=== PATIENT | male | born 1955 | race Caucasian/White ===

== ENCOUNTER → 2017-03-14 | Outpatient (CLI) | payer BC ==
[~2017-03-14] MED LIST: ACET-749 PO; ASPEC325 PO; ASPI81TA28 PO; ATOR-24 PO; CIPR-255 PO; CLOP1TAB15 PO; LISI-725 PO; LSN25 PO; METO25TA56 PO; NTRGSL/4 SL; PHEN-775 PO
[2017-03-14 17:59] LABS: URINE APPEARANCE CLEAR (CLEAR); URINE BILIRUBIN NEG (NEG); URINE COLOR YELLOW; URINE EPITHELIAL CELL AUTO 0-5 /lpf (0-5); URINE NITRITE NEG (NEG); UROBILINOGEN NEG (NEG); ZZUR CULT IF INDIC CLEAN CATCH NO
[2017-03-14 18:01] LABS: MANUAL MICROSCOPIC REQUIRED? NO; REVIEW REQ? NO
[2017-03-14 18:07] LABS: BASO % 0.8 %; BASO ABS # 0.08 K/uL (0-0.2); COMPLETE YES; EOS % 1.4 %; IG% 0.2 %; LYMPH % 28.6 %; MEAN CELL VOLUME 97.8 fL (80-100); MEAN CORPUSCULAR HEMOGLOBIN 32.9 pg (25-34); MEAN CORPUSCULAR HGB CONC 33.6 g/dl (32-36); MEAN PLATELET VOLUME 9.6 fL (7.4-10.4); MONO % 10.4 %; NEUT % 58.6 %; PLATELET COUNT 342 K/uL (130-400); WHITE BLOOD COUNT 9.44 K/uL (4.8-10.8)
[2017-03-14 18:13] LABS: ALT/SGPT 26 U/L (12-78); AST/SGOT 14 U/L (15-37); BLOOD UREA NITROGEN 14 mg/dl (7-18); BUN/CREATININE RATIO 14.2 (10-20); CALCIUM 9.5 mg/dl (8.5-10.1); CARBON DIOXIDE 25 mmol/L (21-32); CHLORIDE 109 mmol/L (98-107); CREATININE 0.99 mg/dl (0.60-1.40); GLUCOSE 85 mg/dl (70-99); SODIUM 140 mmol/L (136-145)
[2017-03-14 18:20] LABS: ALB/GLOB RATIO 0.9 (0.9-2); ALKALINE PHOSPHATASE 106 U/L (45-117); CHOLESTEROL 197 mg/dl (0-200); CHOLESTEROL/HDL RATIO 3.6; HDL CHOLESTEROL 55 mg/dl; LDL CHOLESTEROL CALCULATED 101 mg/dl; TRIGLYCERIDES 207 mg/dl (0-150); VERY LOW DENSITY LIPOPROT CALC 41 mg/dl
== END | disposition home or self-care (01) ==
LOC: C.LABBFT 12:27
PROVIDERS: ATTEND Physician Assistant Medical
DX: R31.0 Gross hematuria (principal); E78.5 Hyperlipidemia, unspecified; Z12.5 Encounter for screening for malignant neoplasm of prostate

== ENCOUNTER → 2017-03-22 | Outpatient (CLI) | payer BC ==
--- NOTE | 2017-03-22 09:06 | DIAGNOSTIC IMAGING REPORT ---
ABD/PELVIS COMBO HISTORY: 61 years-old Male R31.0 Gross hematuria COMPARISON: None available TECHNIQUE: Multiple axial CT images of the abdomen and pelvis were obtained both with and without the use of 116 mL Optiray 320. A dose lowering technique was used consistent with the principals of AMPARO. FINDINGS: The imaged lung bases are generally clear with only minimal subsegmental atelectasis. There is minimal pleural parenchymal scarring of the inferior segment lingula. No pneumoperitoneum identified. Coronary arterial calcifications are partially imaged. The liver, gallbladder, spleen, and adrenal glands are within normal limits. Minimal parenchymal calcifications are seen involving the uncinate process of the pancreas which may reflect sequela of chronic pancreatitis. There is no nephrolithiasis. 1.2 x 1.0 cm low attenuating lesion of the posterior interpolar left kidney suggests renal cyst. The bilateral ureters appear normal. There is nodular wall thickening of the urinary bladder lumen which is only partially distended. There is a focal irregular area of soft tissue attenuating mural based polypoid nodularity along the left posterior lateral aspect of the urinary bladder lumen, 1.9 x 0.9 x 1.2 cm in the region of the left ureterovesicular junction suspicious for mass without obstruction of the adjacent left ureter. There are coarse parenchymal calcifications of the prostate. There is moderate atherosclerotic plaquing of the abdominal aorta. No bulky adenopathy is seen. There is no bowel obstruction. The appendix is tortuous and appears noninflamed. Soft tissues are unremarkable. Multilevel severe facet arthrosis is present. There is mild convex right curvature of the lumbar spine with multilevel discogenic degenerative changes. There is 5 mm anterolisthesis L5 on S1 with remote left-sided pars defect. IMPRESSION: 1. 1.9 x 0.9 x 1.2 cm area of soft tissue attenuating polypoid nodularity of the left posterior lateral urinary bladder wall adjacent to the left ureterovesicular junction is very suspicious for urothelial neoplasm. Correlation with cystoscopy is recommended. 2. No renal calculi or hydronephrosis. 3. Incidental note is made of a remote left-sided pars defect at L5 with 5 mm anterolisthesis L5 on S1. The above report was generated using voice recognition software. It may contain grammatical, syntax or spelling errors. Electronically signed by: Miles Baez M.D. 03/22/2017 9:05 AM Dictated Date/Time: 03/22/2017 8:53 AM
== END | disposition home or self-care (01) ==
LOC: C.CTS 08:28
PROVIDERS: ATTEND Physician Assistant Medical
DX: R31.0 Gross hematuria (principal); N28.9 Disorder of kidney and ureter, unspecified; M53.87 Other specified dorsopathies, lumbosacral region

== ENCOUNTER → 2017-03-24 | Outpatient (CLI) | payer BC ==
--- NOTE | 2017-03-24 08:43 | DIAGNOSTIC IMAGING REPORT ---
CHEST 2 VIEWS ROUTINE CLINICAL HISTORY: Gross hematuria. COMPARISON STUDY: Chest radiograph May 18, 2011. FINDINGS: Lung volumes are normal. Lungs are clear. No pneumothorax or pleural effusion is present. Cardiac size is normal. Mediastinal contours are normal. There is no evidence of pulmonary edema. IMPRESSION: No acute cardiopulmonary findings. Electronically signed by: Alphonse Ferreira M.D. 03/24/2017 8:42 AM Dictated Date/Time: 03/24/2017 8:38 AM
== END | disposition home or self-care (01) ==
LOC: C.CPL 08:20
PROVIDERS: ATTEND Urology
DX: R31.0 Gross hematuria (principal)

== ENCOUNTER → 2017-03-28 | Day surgery (SDC) | payer BC ==
[2017-03-24 13:56] VITALS: BMI 28.0
[~2017-03-28] VITALS: Ht 175.3 cm; Wt 86.4 kg
[~2017-03-28] MED LIST changes: -ASPEC325 PO; -ATOR-24 PO; +ATROPINE SULFATE 0.1 MG/ML 5ML SYR IV PRN; +CIPROFLOXACIN / D5W 400 MG IV SCH; -CLOP1TAB15 PO; +EpHEDrine SULFATE INJ 50 MG/ML AMP IV PRN; +FENTANYL CITRATE INJ 50 MCG/1 ML 2 ML VIAL IV PRN; +FENTANYL CITRATE INJ 50 MCG/1 ML 2 ML VIAL ONE; +LACTATED RINGER'S 1000ML 1,000 ML IV SCH; +LIDOCAINE HCL 2% 2 ML VIAL (20MG/ML) ONE; -LSN25 PO; +MIDAZOLAM HCL 1 MG/ML 2ML VIAL ONE; +ONDANSETRON INJ 2 MG/ML 2 ML VIAL IV PRN; +OXYCODONE/ACETAMINOPHEN 5-325 TAB PO PRN; +PROMETHAZINE HCL INJ 6.25 MG in SODIUM CHLORIDE 0.9% 50ML 50 ML IV PRN; +PROPOFOL IV EMULSION 10 MG/ML 20 ML VIAL IV ONE; +SODIUM CHLORIDE 0.9% 1000ML 1,000 ML IV SCH; +TAMSULOSIN HCL 0.4 MG CAP PO ONE
[2017-03-28 09:53] VITALS: BP 138/81; PULSE 61; TEMP 36.5; O2SAT 96; Ht 175.3 cm; Wt 86.4 kg
--- NOTE | 2017-03-28 10:17 | History & Physical Bridge Note ---
H&P Re-Evaluation Bridge Note: I have examined the patient, reviewed the History & Physical and in the interval since the performance of the History & Physical I have noted the following changes of clinical significance: No changes noted
--- NOTE | 2017-03-28 11:02 | [facility] Operative Report ---
Operative Report Operative Date Mar 28, 2017. Pre-Operative Diagnosis Bladder tumor Post-Operative Diagnosis Bladder tumor Procedure(s) Performed Cystoscopy, Transurethral Resection Bladder Tumor (medium) Surgeon Lisbeth Wet Sander Surgeon(s) none Estimated Blood Loss 0cc Findings Bladder tumor arising from the left lateral wall immediately adjacent to the left ureteral orifice - estimated 3 cm Specimens A:Bladder tumor Drains none Anesthesia Gen. Complication(s) None Disposition Recovery Room / PACU (stable) Indications Hematuria; bladder tumor Description of Procedure Rashard Newton was identified in the preoperative holding area appropriate informed consents were reviewed and completed and the patient was transported to the operating suite. Upon arrival he received appropriate preoperative antibiotics in the form of ciprofloxacin, he was sterilely prepped and draped in standard fashion, and the case initiated. I begin by passing a 24 Scottish resectoscope with 30 lens and visual obturator. Inspection revealed a healthy- appearing urethra without evidence of stricture disease. Prostate was moderately enlarged with some lateral lobe hypertrophy. Full inspection of the bladder was carried out with both 30 and 70 lens. Ureteral orifices were medially identified in orthotopic position. Immediately adjacent to the left ureteral orifice there was a protuberant bladder tumor. I estimate the size of this tumor nearly 3 cm. It did not have simple papillary architecture. He appeared to be more of a solid mass causing bulbous projection into the bladder. On the posterior aspect of this there was some typical papillary architecture. Full inspection of the bladder failed to reveal any other satellite lesions. Following my inspection, I exchanged the visual obturator for resecting element. I was able to resect the solitary tumor with a series of swipes. Extreme caution was used to avoid encroachment onto the UO itself. After obtaining meticulous hemostasis from the resection site and irrigating all chips out of the bladder, I reevaluated the bladder. There is still clear efflux from the left ureteral orifice and at this time I did not see any reason to stent it. I again confirmed that all tumor have been adequately treated, all chips were irrigated, and the bladder was hemostatic before withdrawing the scope and emptying the bladder. Patient was subsequently extubated and taken to the PACU in stable condition. I attest to the content of the Intraoperative Record and any orders documented therein. Any exceptions are noted below.
--- NOTE | 2017-03-28 11:05 | Discharge Instructions ---
Discharge Instructions Date of Service Mar 28, 2017. Admission Reason for Admission: Hematuria Discharge Discharge Diagnosis / Problem: bladder tumor Discharge Goals Goal(s): Decrease discomfort, Improve function, Increase independence, Improve disease control, Prevent Disease Progression Activity Recommendations Activity Limitations: per Instructions/Follow-up section Lifting Limitations: gradually increase as tolerated Exercise/Sports Limitations: gradually increase as tolerated May Resume Sexual Activity: when tolerated Shower/Bathe: no limitations Driving or Machine Use: resume 1 day after discharge Please drink lots of water . Instructions / Follow-Up Instructions / Follow-Up Please keep your previously scheduled follow-up appointment Discharge Diet Recommended Diet: Regular Diet Procedures Procedures Performed: Cystoscopy, Transurethral Resection Bladder Tumor (medium) Pending Studies Studies pending at discharge: no Laboratory Results Lipid Panel Test 03/14/17 12:29 Range/Units Triglycerides Level 207 H 0-150 mg/dl Cholesterol Level 197 0-200 mg/dl HDL Cholesterol 55 mg/dl Cholesterol/HDL Ratio 3.6 LDL Cholesterol, Calculated 101 mg/dl Medical Emergencies . Who to Call and When: Medical Emergencies: If at any time you feel your situation is an emergency, please call 911 immediately. . Non-Emergent Contact Non-Emergency issues call your: Urologist Call Non-Emergent contact if: you have a fever, temperature is above 101.5, your pain is not controlled, your pain is worsening . . "Provider Documentation" section prepared by Neo Robertson. . VTE Core Measure Inpt VTE Proph given/why not?: Treatment not indicated [place] Drug Monitoring Program Search Results: patient reviewed within database, no issues identified
--- NOTE | 2017-03-28 11:38 | Anesthesiology Progress Note ---
Anesthesia Post Op Note Date & Time Mar 28, 2017 at 11:38 Vital Signs Pain Intensity: 3 Vital Signs Past 12 Hours Date Time Temp Pulse Resp B/P (MAP) Pulse Ox O2 Delivery O2 Flow Rate FiO2 03/28/17 11:30 56 16 92/55 96 Room Air 03/28/17 11:20 54 16 127/74 93 Room Air 03/28/17 11:10 62 16 149/85 98 Oxymask 10 03/28/17 11:02 36.6 64 16 136/86 97 Oxymask 10 03/28/17 09:53 36.5 61 18 138/81 (100) 96 Room Air Notes Mental Status: alert / awake / arousable, participated in evaluation Pt Amnestic to Procedure: Yes Nausea / Vomiting: adequately controlled Pain: adequately controlled Airway Patency, RR, SpO2: stable & adequate BP & HR: stable & adequate Hydration State: stable & adequate Anesthetic Complications: no major complications apparent
[2017-03-28 11:45] VITALS: BP 118/61; PULSE 54; TEMP 36.4; O2SAT 93
[2017-03-28 12:06] VITALS: BP 118/61; PULSE 54; TEMP 36.4; O2SAT 93
[2017-03-28 12:15] VITALS: BP 117/67; PULSE 52; O2SAT 95
[2017-03-28 12:40] VITALS: BP 141/75; PULSE 54; TEMP 35.9; O2SAT 95
== END | disposition home or self-care (01) ==
LOC: C.ACU 09:27
PROVIDERS: ATTEND Urology
DX: C67.9 Malignant neoplasm of bladder, unspecified (principal); E78.5 Hyperlipidemia, unspecified; I10 Essential (primary) hypertension; F17.200 Nicotine dependence, unspecified, uncomplicated; I25.2 Old myocardial infarction; Z79.82 Long term (current) use of aspirin; Z80.52 Family history of malignant neoplasm of bladder

== ENCOUNTER → 2017-12-05 | Outpatient (CLI) | payer OTHER ==
[~2017-12-05] MED LIST changes: -ACET-749 PO; -ATROPINE SULFATE 0.1 MG/ML 5ML SYR IV PRN; -CIPROFLOXACIN / D5W 400 MG IV SCH; -EpHEDrine SULFATE INJ 50 MG/ML AMP IV PRN; -FENTANYL CITRATE INJ 50 MCG/1 ML 2 ML VIAL IV PRN; -FENTANYL CITRATE INJ 50 MCG/1 ML 2 ML VIAL ONE; -LACTATED RINGER'S 1000ML 1,000 ML IV SCH; -LIDOCAINE HCL 2% 2 ML VIAL (20MG/ML) ONE; -MIDAZOLAM HCL 1 MG/ML 2ML VIAL ONE; -ONDANSETRON INJ 2 MG/ML 2 ML VIAL IV PRN; -OXYCODONE/ACETAMINOPHEN 5-325 TAB PO PRN; -PHEN-775 PO; -PROMETHAZINE HCL INJ 6.25 MG in SODIUM CHLORIDE 0.9% 50ML 50 ML IV PRN; -PROPOFOL IV EMULSION 10 MG/ML 20 ML VIAL IV ONE; -SODIUM CHLORIDE 0.9% 1000ML 1,000 ML IV SCH; -TAMSULOSIN HCL 0.4 MG CAP PO ONE
[2017-12-05 12:35] LABS: BASO % 0.6 %; BASO ABS # 0.05 K/uL (0-0.2); EOS % 0.9 %; EOS ABS # 0.07 K/uL (0-0.5); HEMATOCRIT 42.1 % (42-52); IG# 0.01 K/uL (0.00-0.02); LYMPH % 29.6 %; LYMPH ABS # 2.28 K/uL (1.2-3.4); MEAN CELL VOLUME 97.2 fL (80-100); MEAN CORPUSCULAR HEMOGLOBIN 32.3 pg (25-34); MEAN CORPUSCULAR HGB CONC 33.3 g/dl (32-36); MEAN PLATELET VOLUME 9.9 fL (7.4-10.4); MONO % 9.7 %; MONO ABS # 0.75 K/uL (0.11-0.59); NEUT % 59.1 %; NEUT ABS # 4.55 K/uL (1.4-6.5); PLATELET COUNT 294 K/uL (130-400); RED CELL DISTRIBUTION WIDTH CV 13.9 % (11.5-14.5); RED CELL DISTRIBUTION WIDTH SD 49.8 fL (36.4-46.3); WHITE BLOOD COUNT 7.71 K/uL (4.8-10.8)
[2017-12-05 13:09] LABS: ALBUMIN 3.3 gm/dl (3.4-5.0); ALT/SGPT 25 U/L (12-78); AST/SGOT 15 U/L (15-37); BLOOD UREA NITROGEN 14 mg/dl (7-18); CALCIUM 9.1 mg/dl (8.5-10.1); CARBON DIOXIDE 27 mmol/L (21-32); CHOLESTEROL 161 mg/dl (0-200); CREATININE 0.99 mg/dl (0.60-1.40); GLUCOSE 87 mg/dl (70-99); POTASSIUM 4.1 mmol/L (3.5-5.1); SODIUM 140 mmol/L (136-145)
[2017-12-05 13:14] LABS: ALKALINE PHOSPHATASE 98 U/L (45-117); LDL CHOLESTEROL CALCULATED 78 mg/dl
== END | disposition home or self-care (01) ==
LOC: C.LABBFT 08:03
PROVIDERS: ATTEND Physician Assistant Medical
DX: E78.5 Hyperlipidemia, unspecified (principal)

== ENCOUNTER 2023-09-19 15:58 | Inpatient (IN) ==
[2023-09-19] MEDS ORDERED: SODIUM CHLORIDE 0.9% 1,000 ML IV STA (16:33)
--- NOTE | 2023-09-19 16:33 | ED Triage Note ---
Date of Service September 19, 2023 Provider in Triage Author: Mildred Patel History of Present Illness This patient was briefly evaluated while in triage. An abbreviated physical exam was performed. This patient is a 68-year-old Male who presents to the ED for evaluation of hypotension and lightheadedness with h/o UC. He has been having increased diarrhea and rectal bleeding. Also having right sided abdominal pain. Denies nausea, vomiting, or fevers. He was referred to the ER by Dr. Hensley "for IV fluids." He was on Entyvio, but was having complications and needed to stop it. No longer on meds for UC. Physical Exam GENERAL: Non-toxic and in no acute distress. HEENT: Pupils equal. No obvious scleral icterus. HEART: Regular rate and rhythm. LUNGS: Clear to auscultation. No accessory muscle use. ABDOMEN: Soft, mildly tender in the RLQ. NEURO: Alert and oriented. No obvious neurological deficits on quick neuro exam. MUSCULOSKELETAL: No gross musculoskeletal defects. Initial orders for labs and / or imaging were placed and patient was placed in the waiting area until a bed is available. Please see further documentation for the full ED course. 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
[2023-09-19 17:09] LABS: Appearance Urine Clear (Clear); Bacteria Urine Automated Negative (Negative); Bilirubin Urine Negative (Negative); Blood Urine Negative (Negative); Color Urine Dark Yellow; Glucose Urine UA Negative (Negative); Ketones Urine Trace (Negative); Leukocyte Esterase Urine Negative (Negative); Nitrite Urine Negative (Negative); Protein Urine Trace (Negative); RBC Urine Automated 0-4 /hpf (0-4); Specific Gravity Urine 1.014 (1.000-1.030); Urobilinogen Urine Negative (Negative)
--- NOTE | 2023-09-19 17:12 | XRay Report ---
XR chest 1V portable HISTORY: 68 years-old Male Hypotension COMPARISON: 09/14/2023 TECHNIQUE: AP view of the chest FINDINGS: Cardiomediastinal and hilar silhouettes are within normal limits. Calcified plaque of the carotid art eries. Atherosclerosis of the aorta. Spondylotic spurring of the spine. No pneumothorax, pleural effu marc or airspace consolidation. IMPRESSION: No acute process. ACT 112: Negative or not required by law. The above report was generated using voice recognition software. It may contain grammatical, syntax o r spelling errors. Electronically signed by: Dom Baez M.D. 09/19/2023 5:10 PM
--- NOTE | 2023-09-19 17:22 | Emergency Department Note ---
Impression & Plan [facility] (acute kidney injury), Hypotension, Ulcerative proctosigmoiditis, Dehydration ED Provider Note NAME: ELIZABETH PHELAN AGE: 68 SEX: M ARRIVES VIA: Walk-In INFORMANT: Patient ED PROVIDER(S): Yoseph Alva MD CHIEF COMPLAINT: Dizziness, diarrhea/colitis, referred PLAN: Disposition: Admit MEDICAL DECISION MAKING: The patient is a pleasant 68-year-old gentleman with a past medical history of CKD, history of ulcerative colitis, everyday vaping, CAD who presents emergency department via walk in for ongoing lightheadedness over the past week or so in the setting of having persistent loose/watery stools since the mid of July consistent with his history of colitis per his report. Patient was seen by his primary care doctor today and referred to emergency department due to his dizziness and low blood pressure. He denies any chest pain, shortness of breath, cough or congestion. He denies any nausea or vomiting. He reports he is able to eat and drink but admits he is probably getting dehydrated from his diarrhea. Of note, the patient was seen in this emergency department approximately a week ago for syncopal episode in the setting of dehydration and acute kidney injury were he had suffered a nondisplaced left anterior 5th rib fracture. Admission was recommended at that time however the patient declined and preferred to follow-up with his primary care doctor which he did so today. Of note, the patient did arrive to emergency department during time of high volume, acuity and prolonged emergency department waiting times. Critical pathways initiated from triage. On evaluation the patient is fatigued appearing but no distress, afebrile blood pressure initially 80s/60s in triage improving with IV fluids to systolic in the 100s. Vital signs are otherwise stable. He appears clinically dry. Abdomen is benign. EKG without overt acute ischemia. CXR negative for acute cardiopulmonary process per my personal preliminary review/interpretation. WBC and platelets within normal limits. H/H similar to prior. Platelets within normal limits. ESR is 48, nonspecific. CRP is undetectable. Creatinine is 2.04, unimproved since his visit a week ago and overall worsening trend since July with range of 1.5-2.0 whereas his previous range had been 1-1.5. UA without convincing evidence of infection. CT of the abd/pelvis was performed and demonstrates evidence of colitis/proctocolitis consistent with patient's UC history. Findings reviewed with the patient and given his ongoing renal insufficiency trending worse from baseline with hypotension on arrival in addition to dizziness in the setting of having syncopal episode last week the patient does agree with plan for admission for further management. Of note, during the patient's emergency department observation/evaluation he had grown frustrated and expressed to nursing his distance [address] was performed without talking him asking for permission. I then met with the patient again and reviewed with him how we had discussed this in detail and specifically the need to obtain a CT of the abdomen pelvis at which point he then recalled that this had occurred and had apologized and talked his forgetfulness up to his dehydration. For completeness however CT of the head was ordered to exclude central etiology to the patient's forgetfulness which was again reviewed with the patient in person and he did agree. This was negative for acute abnormalities. Otherwise, the patient's C. difficile PCR and stool PCR was negative and so treatment initiated with 60 mg dose of Solu-Medrol for UC flare per PCP documentation from his visit today regarding his management for previous flares. Nicotine patch ordered. Case was discussed with Dr. Curtis, [facility] [place], who will evaluate the patient for admission. Triage Nursing notes reviewed and agree them. Prior/external medical records reviewed Vital Signs: reviewed Differential diagnosis: Gastroenteritis, food borne illness, infections, appendicitis, diverticulitis, inflammatory bowel disease, obstruction, GI bleed, biliary pathology, volvulus, as well as other pathologies. ER treatment provided: See below. Diagnostics interpreted by me: ECG: Normal sinus rhythm, 75 bpm, no ectopy, no overt ST elevation or depression, QTc 410, QRS 76 Cardiac Monitoring: An order for continuous cardiac monitoring was placed and demonstrated Normal sinus rhythm, 75 bpm, no ectopy, Laboratory studies: See below Imaging studies: See below Consultation(s): Case was discussed with NAZARIO Lopez hospitalist, who will evaluate the patient for admission. HPI: The patient is a pleasant 68-year-old gentleman with a past medical history of CKD, history of ulcerative colitis, everyday vaping, CAD who presents emergency department via walk in for ongoing lightheadedness over the past week or so in the setting of having persistent loose/watery stools since the mid of July consistent with his history of colitis per his report. Patient was seen by his primary care doctor today and referred to emergency department due to his dizziness and low blood pressure. He denies any chest pain, shortness of breath, cough or congestion. He denies any nausea or vomiting. He reports he is able to eat and drink but admits he is probably getting dehydrated from his diarrhea. Of note, the patient was seen in this emergency department approximately a week ago for syncopal episode in the setting of dehydration and acute kidney injury were he had suffered a nondisplaced left anterior 5th rib fracture. Admission was recommended at that time however the patient declined and preferred to follow-up with his primary care doctor which he did so today. ROS: See above HPI for pertinent positives & negatives. A total of 10 systems reviewed and were otherwise negative. VITALS:See Below PHYSICAL EXAMINATION: GENERAL: Awake, alert, fatigued-appearing, in no distress HENT: Normocephalic, atraumatic. Oropharynx with dry mucous membranes and otherwise unremarkable. EYES: Normal conjunctiva. Sclera non-icteric. EOMI. No nystamgus. PEARRL. NECK: Supple. No nuchal rigidity. FROM. No JVD. RESPIRATORY: Clear to auscultation. CARDIAC: Regular rate, normal rhythm. Extremities warm and well perfused. Pulses equal. ABDOMEN: Soft, non-distended. No tenderness to palpation. No rebound or guarding. No masses. RECTAL: Deferred. MUSCULOSKELETAL: Chest examination reveals no tenderness. The back is symmetrical on inspection without obvious abnormality. There is no CVA tenderness to palpation. No joint edema. LOWER EXTREMITIES: Calves are equal size bilaterally and non-tender. No edema. No discoloration. NEURO: Normal sensorium. No sensory or motor deficits noted. SKIN: No rash or jaundice noted. 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 BPH (benign prostatic hyperplasia) Osteoarthritis Hyperlipidemia Personal history of malignant neoplasm of bladder Hypertension Past myocardial infarction 2010 with stent x 2 CAD (coronary artery disease) stent x2 (2010) Surgical History History of colonoscopy History of laryngoscopy WITH BIOPSY History of cystoscopy BLADDER TUMOR REMOVED x2 History of biopsy of bladder History of tooth extraction History of tonsillectomy History of cardiac cath stent x2 (2010) -- [facility] follow with kari flores Stented coronary artery Family History Father Bladder cancer Denies family history of Ovarian cancer Prostate cancer Myocardial infarction Breast cancer Colorectal cancer Social History Smoking Status: Never smoker Tobacco Type: E-cigarettes / Vaping Age Started Using Tobacco: 14; Age Quit Using Tobacco: 65; Cigarettes Per Day: daily 1 pod 2 days; Second Hand Exposure: No; Do You Dip or Chew Tobacco: No; Hx Alcohol Use: Yes (stopped drinking Aug 01, 2024) Alcohol type: beer Alcohol Intake Frequency: 4 or More x per/Week Hx Substance Use: No Preferred Language: Syrian Communication Ability: Effective Visual Impairment: No Limitations Hearing Ability: Normal Fabricator Special Items Required: No Beliefs That Will Affect Care: None marital status: Single Current Living Situation: Alone Current Living Situation Comment: sister and brother are available to help current occupational status: retired current occupation: retired from career with [employer] with [employer] Feels Safe at Home: Yes Childhood Exposure to Second-Hand Smoke: Yes Diet: regular caffeine: Yes (one mug of coffee daily) Dental Care, Regularly: Yes Physical Activity Frequency: Does not Exercise Seatbelt Use: always Sunscreen Use: No (doesn't go outside when it is mary ) Assistive Devices: Glasses Allergies Allergies Allergy/AdvReac Type Severity Reaction Status Date / Time atorvastatin AdvReac Intermediate LEG Verified 09/19/23 18:30 FATIGUE, BACK PAIN Home Meds Home Medications Medication Instructions Recorded Confirmed nitroglycerin 0.4 mg sublingual 0.4 mg sublingual Q5M PRN chest 06/25/19 09/19/23 tablet pain #25 tabs aspirin 325 mg tablet 325 mg PO HS 02/04/22 09/19/23 allopurinol 100 mg tablet 100 mg PO DAILY 05/06/22 09/19/23 multivitamin (Daily Multi-Vitamin 1 tab PO DAILY 05/06/22 09/19/23 tablet) Previous Rx's Medication Instructions Recorded lisinopril 40 mg tablet 40 mg PO HS #90 tabs 11/09/22 rosuvastatin 40 mg tablet 40 mg PO HS #90 tabs 11/09/22 metoprolol succinate 50 mg 50 mg PO DAILY #90 tabs 03/10/23 tablet,extended release 24 hr tamsulosin 0.4 mg capsule 0.4 mg PO DAILY #90 caps 04/17/23 ezetimibe 10 mg tablet (Zetia) 10 mg PO DAILY #90 tabs 07/07/23 prednisone 20 mg tablet 40 mg (2 x 20 mg) PO DAILY 7 days 09/19/23 #14 tabs Results & Data (ED) Vital Signs Vital Signs - 24 hr 09/19/23 16:31 09/19/23 17:21 09/19/23 17:30 Temperature 36.9 C Temperature Source Temporal Artery Scan Pulse Rate 89 75 73 Pulse Rate [Apical] Pulse Rhythm Regular Pulse Rhythm [Apical] Pulse Strength [Apical] Respiratory Rate 19 20 Respiratory Effort / Characteristics Non-Labored Spontaneous Respiratory Depth Normal Respiratory Pattern Blood Pressure 87/63 L Blood Pressure [Right Arm] Blood Pressure Mean 71 Blood Pressure Mean [Right Arm] Blood Pressure Position [Right Arm] Pulse Oximetry 95 95 Oxygen Delivery Method Room Air Room Air Sepsis Recent Fever Within 48 Hours No Sepsis New/Unexplained Change in Mental Status N/A Sepsis Action Taken by Nursing No Action Required 09/19/23 17:59 09/19/23 19:12 09/19/23 20:02 Temperature 36.9 C 37.3 C Temperature Source Oral Oral Pulse Rate Pulse Rate [Apical] 78 81 Pulse Rhythm Pulse Rhythm [Apical] Regular Pulse Strength [Apical] Normal Respiratory Rate 19 18 20 Respiratory Effort / Characteristics Non-Labored Spontaneous Non-Labored Spontaneous Respiratory Depth Normal Normal Normal Respiratory Pattern Regular Blood Pressure Blood Pressure [Right Arm] 100/60 128/70 138/71 Blood Pressure Mean Blood Pressure Mean [Right Arm] 73 89 93 Blood Pressure Position [Right Arm] Semi-fowlers Semi-fowlers Pulse Oximetry 95 99 Oxygen Delivery Method Room Air Room Air Sepsis Recent Fever Within 48 Hours Sepsis New/Unexplained Change in Mental Status Sepsis Action Taken by Nursing Laboratory Data Attestation: I reviewed the patient's lab results. 09/19/23 17:15 09/19/23 17:15 Lab Results 09/19/23 09/19/23 09/19/23 Range/Units 17:15 17:27 17:44 WBC 5.63 (4.8-10.8) K/ul RBC 3.61 L (4.70-6.10) M/uL Hgb 11.9 L (14.0-18.0) g/dl Hct 36.3 L (42.0-52.0) % MCV 100.6 H (80.0-100.0) fL MCH 33.0 (25.0-34.0) pg MCHC 32.8 (32.0-36.0) g/dL RDW Std Deviation 49.5 H (36.4-46.3) fL RDW Coeff of Sandra 13.4 (11.5-14.5) % Plt Count 257 (130-400) K/uL MPV 8.8 L (9.4-12.4) fL Immature Gran % (Auto) 0.4 % Neut % (Auto) 61.4 % Lymph % (Auto) 19.9 % [place] % (Auto) 15.5 % Eos % (Auto) 1.6 % Baso % (Auto) 1.2 % Neut # (Auto) 3.46 (1.40-6.50) K/uL Lymph # (Auto) 1.12 L (1.20-3.40) K/uL [place] # (Auto) 0.87 H (0.11-0.59) K/uL Eos # (Auto) 0.09 (0.00-0.50) K/uL Baso # (Auto) 0.07 (0.00-0.20) K/uL Immature Gran # (Auto) 0.02 (0.01-0.20) K/uL ESR 48 H (0-20) mm/hr PT 10.9 (9.0-12.0) Seconds INR 1.0 (0.9-1.1) APTT 28 (21-31) Seconds PTT Ratio 1.0 Sodium 138 (136-145) mmol/L Potassium 4.3 (3.5-5.1) mmol/L Chloride 104 (98-107) mmol/L Carbon Dioxide 23 (21-32) mmol/L Anion Gap 11 (3-11) BUN 22 (6-23) mg/dl Creatinine 2.04 H (0.6-1.4) mg/dl Est Cr Clr Drug Dosing 31.6 ml/min Est GFR ( Amer) 37.2 ml/min Est GFR (Non-Af Amer) 32.1 ml/min BUN/Creatinine Ratio 10.8 (10-20) Glucose 100 H (70-99(Fasting)) mg/dl Calcium 10.0 (8.6-10.3) mg/dl Total Bilirubin 0.5 (0.2-1.0) mg/dl AST 15 (13-39) U/L ALT 17 (7-52) U/L Alkaline Phosphatase 112 H (34-104) U/L Troponin I High Sens 4.0 (0-20) pg/ml C-Reactive Protein < 0.50 (0-0.5) mg/dl Total Protein 6.9 (6.0-8.3) gm/dl Albumin 4.0 (3.4-5.0) gm/dl Globulin 2.9 (2.5-4.0) gm/dl Albumin/Globulin Ratio 1.4 (0.9-2) Lipase 25 (11-82) U/L Urine Color Urine Appearance (Clear) Urine pH (4.5-7.5) Ur Specific [place] (1.000-1.030) Urine Protein (Negative) Urine Glucose (UA) (Negative) Urine Ketones (Negative) Urine Blood (Negative) Urine Nitrite (Negative) Urine Bilirubin (Negative) Urine Urobilinogen (Negative) Ur Leukocyte Esterase (Negative) Urine WBC (Auto) (0-5) /hpf Urine RBC (Auto) (0-4) /hpf U Hyaline Cast (Auto) (0-5) /lpf U Epithel Cells (Auto) (0-5) /lpf Urine Bacteria (Auto) (Negative) Stl C. cayetanensis PCR (NotDetected) Stool Rotavirus A PCR (NotDetected) Stl Adenov F 40/41 PCR (NotDetected) Stool Astrovirus (PCR) (NotDetected) Stool Campylobacter PCR (NotDetected) Stl C. diff Tox B Gene (Neg) Stool Cryptosporidium PCR (NotDetected) Stl E.coli Shiga Tox PCR (NotDetected) Stl Enterotoxigenic E PCR (NotDetected) Stool EPEC (PCR) (NotDetected) Stool EAEC (PCR) (NotDetected) Stl E. histolytica PCR (NotDetected) Stool Giardia Lamblia PCR (NotDetected) Stool Salmonella PCR (NotDetected) Stool Sapovirus (PCR) (NotDetected) Stl P. shigelloides PCR (NotDetected) Stl Shigella/EIEC PCR (NotDetected) St Y.enterocolitica PCR (NotDetected) Stool Vibrio (PCR) (NotDetected) Stl Vibrio cholerae PCR (NotDetected) Stl Norovirus GI/GII PCR (NotDetected) Adenovirus (PCR) Not Detected (NotDetected) B. pertussis DNA (PCR) Not Detected (NotDetected) B.parapertussis DNA PCR Not Detected (NotDetected) C. pneumoniae DNA (PCR) Not Detected (NotDetected) Coronavirus OC43 (PCR) Not Detected (NotDetected) Coronavirus HKU1 (PCR) Not Detected (NotDetected) Coronavirus 229E (PCR) Not Detected (NotDetected) SARS-CoV-2 (PCR) Not Detected (NotDetected) Coronavirus NL63 (PCR) Not Detected (NotDetected) Human Metapneumovir PCR Not Detected (NotDetected) Influenza Type A (PCR) Not Detected (NotDetected) Influenza Type B (PCR) Not Detected (NotDetected) M. pneumoniae (PCR) Not Detected (NotDetected) Parainfluenza 1 (PCR) Not Detected (NotDetected) Parainfluenza 2 (PCR) Not Detected (NotDetected) Parainfluenza 3 (PCR) Not Detected (NotDetected) Parainfluenza 4 (PCR) Not Detected (NotDetected) RSV (PCR) Not Detected (NotDetected) Entero/Rhino (PCR) Not Detected (NotDetected) Blood Type O Positive Antibody Screen NEGATIVE 09/19/23 09/19/23 Range/Units 19:07 Unknown WBC (4.8-10.8) K/ul RBC (4.70-6.10) M/uL Hgb (14.0-18.0) g/dl Hct (42.0-52.0) % MCV (80.0-100.0) fL MCH (25.0-34.0) pg MCHC (32.0-36.0) g/dL RDW Std Deviation (36.4-46.3) fL RDW Coeff of Sandra (11.5-14.5) % Plt Count (130-400) K/uL MPV (9.4-12.4) fL Immature Gran % (Auto) % Neut % (Auto) % Lymph % (Auto) % [place] % (Auto) % Eos % (Auto) % Baso % (Auto) % Neut # (Auto) (1.40-6.50) K/uL Lymph # (Auto) (1.20-3.40) K/uL [place] # (Auto) (0.11-0.59) K/uL Eos # (Auto) (0.00-0.50) K/uL Baso # (Auto) (0.00-0.20) K/uL Immature Gran # (Auto) (0.01-0.20) K/uL ESR (0-20) mm/hr PT (9.0-12.0) Seconds INR (0.9-1.1) APTT (21-31) Seconds PTT Ratio Sodium (136-145) mmol/L Potassium (3.5-5.1) mmol/L Chloride (98-107) mmol/L Carbon Dioxide (21-32) mmol/L Anion Gap (3-11) BUN (6-23) mg/dl Creatinine (0.6-1.4) mg/dl Est Cr Clr Drug Dosing ml/min Est GFR ( Amer) ml/min Est GFR (Non-Af Amer) ml/min BUN/Creatinine Ratio (10-20) Glucose (70-99(Fasting)) mg/dl Calcium (8.6-10.3) mg/dl Total Bilirubin (0.2-1.0) mg/dl AST (13-39) U/L ALT (7-52) U/L Alkaline Phosphatase (34-104) U/L Troponin I High Sens (0-20) pg/ml C-Reactive Protein (0-0.5) mg/dl Total Protein (6.0-8.3) gm/dl Albumin (3.4-5.0) gm/dl Globulin (2.5-4.0) gm/dl Albumin/Globulin Ratio (0.9-2) Lipase (11-82) U/L Urine Color Dark Yellow Urine Appearance Clear (Clear) Urine pH 5.0 (4.5-7.5) Ur Specific [place] 1.014 (1.000-1.030) Urine Protein Trace H (Negative) Urine Glucose (UA) Negative (Negative) Urine Ketones Trace H (Negative) Urine Blood Negative (Negative) Urine Nitrite Negative (Negative) Urine Bilirubin Negative (Negative) Urine Urobilinogen Negative (Negative) Ur Leukocyte Esterase Negative (Negative) Urine WBC (Auto) 1-5 (0-5) /hpf Urine RBC (Auto) 0-4 (0-4) /hpf U Hyaline Cast (Auto) 5-10 H (0-5) /lpf U Epithel Cells (Auto) 5-10 H (0-5) /lpf Urine Bacteria (Auto) Negative (Negative) Stl C. cayetanensis PCR Not Detected (NotDetected) Stool Rotavirus A PCR Not Detected (NotDetected) Stl Adenov F 40/41 PCR Not Detected (NotDetected) Stool Astrovirus (PCR) Not Detected (NotDetected) Stool Campylobacter PCR Not Detected (NotDetected) Stl C. diff Tox B Gene Negative Cdiff Gene (Neg) Stool Cryptosporidium PCR Not Detected (NotDetected) Stl E.coli Shiga Tox PCR Not Detected (NotDetected) Stl Enterotoxigenic E PCR Not Detected (NotDetected) Stool EPEC (PCR) Not Detected (NotDetected) Stool EAEC (PCR) Not Detected (NotDetected) Stl E. histolytica PCR Not Detected (NotDetected) Stool Giardia Lamblia PCR Not Detected (NotDetected) Stool Salmonella PCR Not Detected (NotDetected) Stool Sapovirus (PCR) Not Detected (NotDetected) Stl P. shigelloides PCR Not Detected (NotDetected) Stl Shigella/EIEC PCR Not Detected (NotDetected) St Y.enterocolitica PCR Not Detected (NotDetected) Stool Vibrio (PCR) Not Detected (NotDetected) Stl Vibrio cholerae PCR Not Detected (NotDetected) Stl Norovirus GI/GII PCR Not Detected (NotDetected) Adenovirus (PCR) (NotDetected) B. pertussis DNA (PCR) (NotDetected) B.parapertussis DNA PCR (NotDetected) C. pneumoniae DNA (PCR) (NotDetected) Coronavirus OC43 (PCR) (NotDetected) Coronavirus HKU1 (PCR) (NotDetected) Coronavirus 229E (PCR) (NotDetected) SARS-CoV-2 (PCR) (NotDetected) Coronavirus NL63 (PCR) (NotDetected) Human Metapneumovir PCR (NotDetected) Influenza Type A (PCR) (NotDetected) Influenza Type B (PCR) (NotDetected) M. pneumoniae (PCR) (NotDetected) Parainfluenza 1 (PCR) (NotDetected) Parainfluenza 2 (PCR) (NotDetected) Parainfluenza 3 (PCR) (NotDetected) Parainfluenza 4 (PCR) (NotDetected) RSV (PCR) (NotDetected) Entero/Rhino (PCR) (NotDetected) Blood Type Antibody Screen Administered Medications Sodium Chloride (Nss) 1,000 mls @ 250 mls/hr IV .Q4H DICKSON Stop: 10/19/23 20:59 Last Admin: 09/19/23 21:35 Dose: 250 mls/hr Documented By: ML Discontinued Medications Sodium Chloride (Nss) 1,000 mls @ 999 mls/hr IV .Q1H1M STA Stop: 09/19/23 17:33 Last Infusion: 09/19/23 19:13 Dose: Infused Documented By: [facility] Admin: 09/19/23 17:32 Dose: 999 mls/hr Documented By: ANGELICA Ioversol (Optiray 320 500ml) 88 ml IV ONCE ONE Stop: 09/19/23 19:56 Last Admin: 09/19/23 19:55 Dose: 88 ml Documented By: ONELIA Methylprednisolone (Methylprednisolone 125 Mg/2 Ml Vial) 60 mg IV NOW STA Stop: 09/19/23 21:24 Last Admin: 09/19/23 21:46 Dose: 60 mg Documented By: JAJA Imaging Data Radiologist's Impression: Chest X-Ray 09/19/23 16:33 XR chest 1V portable HISTORY: 68 years-old Male Hypotension COMPARISON: 09/14/2023 TECHNIQUE: AP view of the chest FINDINGS: Cardiomediastinal and hilar silhouettes are within normal limits. Calcified plaque of the carotid arteries. Atherosclerosis of the aorta. Spondylotic spurring of the spine. No pneumothorax, pleural effusion or airspace consolidation. IMPRESSION: No acute process. ACT 112: Negative or not required by law. The above report was generated using voice recognition software. It may contain grammatical, syntax or spelling errors. Electronically signed by: Dom Baez M.D. 09/19/2023 5:10 PM Abdomen/Pelvis CT 09/19/23 16:34 Exam(s): CT ABDOMEN + PELVIS With Contrast IV Amt: 88 ml optiray 320 EXAM: CT Abdomen and Pelvis With Intravenous Contrast CLINICAL HISTORY: Reason for exam: RLQ pain, rectal bleeding, hypotension. TECHNIQUE: Axial computed tomography images of the abdomen and pelvis with intravenous contrast. CTDI is 21.91 mGy and DLP is 982.73 mGy-cm. Automated exposure control was utilized for the study. A dose lowering technique was utilized adhering to the principles of ALARA. CONTRAST: Patient received 88 ml optiray 320 of IV contrast COMPARISON: CT abdomen/pelvis on 02/27/2020 FINDINGS: Lung bases: Unremarkable. No mass. No consolidation. ABDOMEN: Liver: Unremarkable. No mass. Gallbladder and bile ducts: Unremarkable. No calcified stones. No ductal dilation. Pancreas: Unremarkable. No mass. No ductal dilation. Spleen: Unremarkable. No splenomegaly. Adrenals: Unremarkable. No mass. Kidneys and ureters: Nonspecific bilateral perinephric fat stranding. No hydronephrosis or obstructing stone. Probable small left renal cysts, but further evaluation could be performed with ultrasound if clinically indicated. Stomach and bowel: Prominence of the partida of the sigmoid colon and rectum may be secondary to underdistention. Colitis or proctitis is not excluded. Fluid and gas-filled small bowel loops could represent enteritis in the appropriate clinical setting. Evaluation of the stomach is limited by underdistention. PELVIS: Appendix: Normal appendix. Bladder: Mild prominence of the bladder wall is nonspecific. Please correlate with urinalysis if concerned for cystitis. Resolution of the previously seen left bladder wall mass. Reproductive: Mild calcification in the prostate. ABDOMEN and PELVIS: Intraperitoneal space: Unremarkable. No free air. No significant fluid collection. Bones/joints: Bilateral L5 pars defects. Grade 1 anterolisthesis of L5 on S1. Degenerative changes of the spine. No acute fracture. No dislocation. Soft tissues: Small fat-containing umbilical hernia. Vasculature: Atherosclerotic changes of the vasculature. Ectasia of the abdominal aorta. No aortic dissection. Occlusion of the left common iliac artery. Moderate stenosis of the right common iliac artery. Phleboliths in the pelvis. Lymph nodes: Unremarkable. No enlarged lymph nodes. IMPRESSION: 1. Prominence of the partida of the sigmoid colon and rectum may be secondary to underdistention. Colitis or proctitis is not excluded. 2. Fluid and gas-filled small bowel loops could represent enteritis in the appropriate clinical setting. 3. Mild prominence of the bladder wall is nonspecific. Please correlate with urinalysis if concerned for cystitis. Electronically signed by: Madelin Gomez M.D. 09/19/23 20:[address] 09/19/23 21:38 Exam(s): CT HEAD Without Contrast EXAM: CT Head Without Intravenous Contrast CLINICAL HISTORY: Reason for exam: memory impairment. TECHNIQUE: Axial computed tomography images of the head/brain without intravenous contrast. CTDI is 35.72 mGy and DLP is 547.75 mGy-cm. Automated exposure control was utilized for the study. A dose lowering technique was utilized adhering to the principles of ALARA. COMPARISON: CT head on 09/14/2023 FINDINGS: Brain: No acute infarct or hemorrhage identified. No extra-axial fluid collection. No mass effect or midline shift. Scattered areas of hypoattenuation in the supratentorial white matter likely represent chronic small vessel ischemic changes. Ventricles and sulci: Prominence of the ventricles and sulci is likely secondary to cerebral volume loss. Bones: Normal. No bony lesion or acute fracture. Subcutaneous tissues: Normal. Sinuses: Normal. No air-fluid levels or mucosal thickening. Mastoid air cells: Normal. Orbits: Grossly unremarkable. Other: Atherosclerotic calcifications in the intracranial vasculature. IMPRESSION: 1. No acute intracranial abnormality. 2. Mild chronic small vessel ischemic changes and cerebral volume loss. Electronically signed by: Madelin Gomez M.D. 09/19/23 22:18 PM Discharge Plan Visit Data Chief Complaint: Abnormal Labs/Diagnostic Testing Stated Complaint: FLUIDS NEEDED, DEHYDRATION, DR ORDER PLACED ED Provider: Yoseph Alva Discharge Problem: LOUIS (acute kidney injury), Hypotension, Ulcerative proctosigmoiditis, Dehydration Forms Stand Alone Forms: My [facility] Prescriptions Prescriptions: No Action multivitamin [Daily Multi-Vitamin] Tablet 1 tab PO DAILY allopurinol 100 mg tablet 100 mg PO DAILY lisinopril 40 mg tablet 40 mg PO HS Qty: 90 3RF rosuvastatin 40 mg tablet 40 mg PO HS Qty: 90 3RF ezetimibe [Zetia] 10 mg tablet 10 mg PO DAILY Qty: 90 3RF nitroglycerin 0.4 mg tablet, sublingual 0.4 mg SL Q5M PRN (Reason: chest pain) Qty: 25 Patient Comments: up to 3 doses prednisone 20 mg tablet 40 mg PO DAILY 7 Days Qty: 14 0RF Rx Instructions: PER PT "DID NOT START YET, 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
[2023-09-19 17:39] LABS: Basophils # (auto) 0.07 K/uL (0.00-0.20); Basophils % (auto) 1.2 %; Eosinophils # (auto) 0.09 K/uL (0.00-0.50); Eosinophils % (auto) 1.6 %; Hematocrit (blood only) 36.3 % (42.0-52.0); Hemoglobin 11.9 g/dl (14.0-18.0); Immature Granulocytes # (auto) 0.02 K/uL (0.01-0.20); Immature Granulocytes % (auto) 0.4 %; Lymphocytes # (auto) 1.12 K/uL (1.20-3.40); Lymphocytes % (auto) 19.9 %; Mean Corpuscular Hgb Conc 32.8 g/dL (32.0-36.0); Mean Corpuscular Volume 100.6 fL (80.0-100.0); Mean Platelet Volume 8.8 fL (9.4-12.4); Monocytes # (auto) 0.87 K/uL (0.11-0.59); Monocytes % (auto) 15.5 %; Neutrophils # (auto) 3.46 K/uL (1.40-6.50); Neutrophils % (auto) 61.4 %; Platelet Count 257 K/uL (130-400); RDW Coefficient of Variation 13.4 % (11.5-14.5); RDW Standard Deviation 49.5 fL (36.4-46.3); Red Blood Count 3.61 M/uL (4.70-6.10); White Blood Count 5.63 K/ul (4.8-10.8)
[2023-09-19 18:14] LABS: Partial Thromboplastin Time 28 Seconds (21-31); Prothrombin Time 10.9 Seconds (9.0-12.0)
[2023-09-19 18:39] LABS: Adenovirus PCR Not Detected (NotDetected); Bordetella parapertussis PCR Not Detected (NotDetected); Bordetella pertussis PCR Not Detected (NotDetected); Chlamydia pneumoniae PCR Not Detected (NotDetected); Coronavirus 229E PCR Not Detected (NotDetected); Coronavirus CoV-2 (COVID19)PCR Not Detected (NotDetected); Coronavirus HKU1 PCR Not Detected (NotDetected); Coronavirus NL63 PCR Not Detected (NotDetected); Coronavirus OC43PCR Not Detected (NotDetected); Human Metapneumovirus PCR Not Detected (NotDetected); Influenza A PCR Not Detected (NotDetected); Influenza B PCR Not Detected (NotDetected); Mycoplasma pneumoniae PCR Not Detected (NotDetected); Parainfluenza Virus 1 PCR Not Detected (NotDetected); Parainfluenza Virus 2 PCR Not Detected (NotDetected); Parainfluenza Virus 3 PCR Not Detected (NotDetected); Parainfluenza Virus 4 PCR Not Detected (NotDetected); Respiratory Syncytial VirusPCR Not Detected (NotDetected); Rhinovirus/Enterovirus PCR Not Detected (NotDetected)
[2023-09-19 19:13] LABS: Anion Gap 11 (3-11); Bilirubin,Total 0.5 mg/dl (0.2-1.0); Carbon Dioxide 23 mmol/L (21-32); Chloride 104 mmol/L (98-107); Potassium 4.3 mmol/L (3.5-5.1); Sodium 138 mmol/L (136-145)
[2023-09-19 19:19] LABS: Alanine Aminotransferase 17 U/L (7-52); Albumin Globulin Ratio 1.4 (0.9-2); Alkaline Phosphatase 112 U/L (34-104); Aspartate Aminotransferase 15 U/L (13-39); BUN Creatinine Ratio 10.8 (10-20); Blood Urea Nitrogen 22 mg/dl (6-23); C Reactive Protein < 0.50 mg/dl (0-0.5); Creatinine Clr Calc Pharmacy 31.6 ml/min; Est GFR (African American) 37.2 ml/min; Est GFR (Non-African American) 32.1 ml/min; Globulin 2.9 gm/dl (2.5-4.0); Glucose 100 mg/dl (70-99(Fasting)); Lipase 25 U/L (11-82); Total Protein 6.9 gm/dl (6.0-8.3)
[2023-09-19] MEDS ORDERED: OPTIRAY 320 500ml IV ONE (19:55)
--- NOTE | 2023-09-19 20:21 | CT Scan Report ---
Exam(s): CT ABDOMEN + PELVIS With Contrast IV Amt: 88 ml optiray 320 EXAM: CT Abdomen and Pelvis With Intravenous Contrast CLINICAL HISTORY: Reason for exam: RLQ pain, rectal bleeding, hypotension. TECHNIQUE: Axial computed tomography images of the abdomen and pelvis with intravenous contrast. CTDI is 21.91 mGy and DLP is 982.73 mGy-cm. Automated exposure control was utilized for the study. A dose lowering technique was utilized adhering to the principles of ALARA. CONTRAST: Patient received 88 ml optiray 320 of IV contrast COMPARISON: CT abdomen/pelvis on 02/27/2020 FINDINGS: Lung bases: Unremarkable. No mass. No consolidation. ABDOMEN: Liver: Unremarkable. No mass. Gallbladder and bile ducts: Unremarkable. No calcified stones. No ductal dilation. Pancreas: Unremarkable. No mass. No ductal dilation. Spleen: Unremarkable. No splenomegaly. Adrenals: Unremarkable. No mass. Kidneys and ureters: Nonspecific bilateral perinephric fat stranding. No hydronephrosis or obstructing stone. Probable small left renal cysts, but further evaluation could be performed with ultrasound if clinically indicated. Stomach and bowel: Prominence of the partida of the sigmoid colon and rectum may be secondary to underdistention. Colitis or proctitis is not excluded. Fluid and gas-filled small bowel loops could represent enteritis in the appropriate clinical setting. Evaluation of the stomach is limited by underdistention. PELVIS: Appendix: Normal appendix. Bladder: Mild prominence of the bladder wall is nonspecific. Please correlate with urinalysis if concerned for cystitis. Resolution of the previously seen left bladder wall mass. Reproductive: Mild calcification in the prostate. ABDOMEN and PELVIS: Intraperitoneal space: Unremarkable. No free air. No significant fluid collection. Bones/joints: Bilateral L5 pars defects. Grade 1 anterolisthesis of L5 on S1. Degenerative changes of the spine. No acute fracture. No dislocation. Soft tissues: Small fat-containing umbilical hernia. Vasculature: Atherosclerotic changes of the vasculature. Ectasia of the abdominal aorta. No aortic dissection. Occlusion of the left common iliac artery. Moderate stenosis of the right common iliac artery. Phleboliths in the pelvis. Lymph nodes: Unremarkable. No enlarged lymph nodes. IMPRESSION: 1. Prominence of the partida of the sigmoid colon and rectum may be secondary to underdistention. Colitis or proctitis is not excluded. 2. Fluid and gas-filled small bowel loops could represent enteritis in the appropriate clinical setting. 3. Mild prominence of the bladder wall is nonspecific. Please correlate with urinalysis if concerned for cystitis. Electronically signed by: Madelin Gomez M.D. 09/19/23 20:20 PM
[2023-09-19 20:55] LABS: Adenovirus F 40/41 PCR Not Detected (NotDetected); Astrovirus PCR Not Detected (NotDetected); Campylobacter PCR Not Detected (NotDetected); Cryptosporidium PCR Not Detected (NotDetected); Cyclospora cayetanensis PCR Not Detected (NotDetected); Entamoeba histolytica PCR Not Detected (NotDetected); Enteroaggregative E.coli(EAEC) Not Detected (NotDetected); Enteropathogenic E.coli (EPEC) Not Detected (NotDetected); Enterotoxigenic E.coli (ETEC) Not Detected (NotDetected); Giardia lamblia PCR Not Detected (NotDetected); Norovirus GI/GII PCR Not Detected (NotDetected); Plesiomonas shigelloides PCR Not Detected (NotDetected); Rotavirus A PCR Not Detected (NotDetected); Salmonella PCR Not Detected (NotDetected); Sapovirus PCR Not Detected (NotDetected); Shiga-like Toxin E.coli (STEC) Not Detected (NotDetected); Shigella/Enteroinvasive E.coli Not Detected (NotDetected); Vibrio cholerae PCR Not Detected (NotDetected); Vibrio species PCR Not Detected (NotDetected); Yersinia enterocolitica PCR Not Detected (NotDetected)
[2023-09-19] MEDS ORDERED: methylPREDNISolone 125 MG/2 ML VIAL IV STA (21:23)
[2023-09-19] MEDS: SODIUM CHLORIDE 0.9% 1,000 ML IV SCH (21:35)
--- NOTE | 2023-09-19 22:19 | CT Scan Report ---
Exam(s): CT HEAD Without Contrast EXAM: CT Head Without Intravenous Contrast CLINICAL HISTORY: Reason for exam: memory impairment. TECHNIQUE: Axial computed tomography images of the head/brain without intravenous contrast. CTDI is 35.72 mGy and DLP is 547.75 mGy-cm. Automated exposure control was utilized for the study. A dose lowering technique was utilized adhering to the principles of ALARA. COMPARISON: CT head on 09/14/2023 FINDINGS: Brain: No acute infarct or hemorrhage identified. No extra-axial fluid collection. No mass effect or midline shift. Scattered areas of hypoattenuation in the supratentorial white matter likely represent chronic small vessel ischemic changes. Ventricles and sulci: Prominence of the ventricles and sulci is likely secondary to cerebral volume loss. Bones: Normal. No bony lesion or acute fracture. Subcutaneous tissues: Normal. Sinuses: Normal. No air-fluid levels or mucosal thickening. Mastoid air cells: Normal. Orbits: Grossly unremarkable. Other: Atherosclerotic calcifications in the intracranial vasculature. IMPRESSION: 1. No acute intracranial abnormality. 2. Mild chronic small vessel ischemic changes and cerebral volume loss. Electronically signed by: Madelin Gomez M.D. 09/19/23 22:18 PM
--- NOTE | 2023-09-19 23:19 | History & Physical Report ---
Date of Service September 19, 2023 Assessment & Plan (1) Ulcerative colitis: (2) Ulcerative proctosigmoiditis: (3) Hypotension: (4) Dehydration: (5) Acute kidney injury superimposed on CKD: (6) CKD (chronic kidney disease) stage 3, GFR 30-59 ml/min: (7) Transitional cell carcinoma: (8) Smokes 1 pack of cigarettes per day: (9) CAD (coronary artery disease): (10) PAD (peripheral artery disease): (11) Carotid artery stenosis: Plan Ulcerative colitis/ulcerative proctosigmoiditis- Symptoms have been significantly worse since he stopped Entyvio in July, against the recommendation of gastroenterology Dr. Marshall [employer] testing negative Stool PCR negative C. difficile gene testing negative He did receive methylprednisolone 60 mg IV from the ED and normal saline [address] scan of abdomen pelvis cannot rule out colitis or proctitis, and is consistent with enteritis as well Methylprednisolone 40 mg IV every 8 hours Zosyn 4.5 g IV every 8 hours Pantoprazole 40 mg IV daily NSS at 80 mL/h x 2 L Acetaminophen 1 g IV every 8 hours as needed for mild pain or fever Discussion can be made with Dr. Marshall's office at what point he thinks the patient may be able to go back on Entyvio as patient now wishes Full liquid diet as tolerated Acute kidney injury superimposed on CKD stage III- Creatinine 2.04, with normal range 1.2-1.5 IV fluids as noted above Recheck laboratories in a.m. 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 He has had loose watery stools since the middle of July, shortly after that time he stopped Entyvo, against the recommendations of gastroenterology Dr. Marshall. Primary Care Provider: Ben Hensley DO The patient is a 68-year-old male with a past medical history including CKD stage III, transitional cell carcinoma, CAD, hypertension, dyslipidemia, stented coronary artery, tobacco use, current vaping daily, malignant neoplasm involving bladder by direct extension from prostate, squamous cell carcinoma of vocal cord, PAD, carotid artery stenosis, ulcerative proctosigmoiditis, ulcerative colitis, B12 deficiency, vitamin D deficiency and gout. The patient reports that he was concerned about potential side effects of Entyvio, and stopped it against the recommendations of his care director Dr. Marshall in early July. Shortly after that time, he developed persistent loose and watery stools, and has had decreased oral intake for liquids and solids due to abdominal discomfort when trying to adjust them. Over the past week he has had progressive issues with fatigue, generalized weakness, and lightheadedness. He realizes at this time, that his decision to stop Entyvo was a bad decision, and has resulted in many of his symptoms at this time. He does report having an abnormal weight loss, but cannot specify how much he has lost, but attributes this to decreased intake due to abdominal discomfort since July Allergies Allergy/AdvReac Type Severity Reaction Status Date / Time atorvastatin AdvReac Intermediate LEG Verified 09/19/23 18:30 FATIGUE, BACK PAIN Home Medications Medication Instructions Recorded Confirmed Type nitroglycerin 0.4 mg sublingual 0.4 mg sublingual Q5M PRN chest 06/25/19 09/19/23 History tablet pain #25 tabs aspirin 325 mg tablet 325 mg PO HS 02/04/22 09/19/23 History allopurinol 100 mg tablet 100 mg PO DAILY 05/06/22 09/19/23 History multivitamin (Daily Multi-Vitamin 1 tab PO DAILY 05/06/22 09/19/23 History tablet) lisinopril 40 mg tablet 40 mg PO HS #90 tabs 11/09/22 09/19/23 Rx rosuvastatin 40 mg tablet 40 mg PO HS #90 tabs 11/09/22 09/19/23 Rx metoprolol succinate 50 mg 50 mg PO DAILY #90 tabs 03/10/23 09/19/23 Rx tablet,extended release 24 hr tamsulosin 0.4 mg capsule 0.4 mg PO DAILY #90 caps 04/17/23 09/19/23 Rx ezetimibe 10 mg tablet (Zetia) 10 mg PO DAILY #90 tabs 07/07/23 09/19/23 Rx prednisone 20 mg tablet 40 mg (2 x 20 mg) PO DAILY 7 days 09/19/23 09/19/23 Rx #14 tabs Past Med/Surg History Medical History (Updated 09/20/23 @ 05:13 by Nilo Curtis MD) Hypotension Dyspnea on exertion Bloody diarrhea Diarrhea Hematochezia Dysuria Gout Ulcerative colitis Carotid artery stenosis PAD (peripheral artery disease) COPD (chronic obstructive pulmonary disease) Esophageal cancer 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 08/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 BPH (benign prostatic hyperplasia) Osteoarthritis Hyperlipidemia Personal history of malignant neoplasm of bladder Hypertension Past myocardial infarction 2010 with stent x 2 CAD (coronary artery disease) stent x2 (2010) Surgical History History of colonoscopy History of laryngoscopy WITH BIOPSY History of cystoscopy BLADDER TUMOR REMOVED x2 History of biopsy of bladder History of tooth extraction History of tonsillectomy History of cardiac cath stent x2 (2010) -- [facility] follow with kari flores Stented coronary artery Family History Father Bladder cancer Denies family history of Ovarian cancer Prostate cancer Myocardial infarction Breast cancer Colorectal cancer Social History Smoking Status: Current every day smoker Tobacco Type: E-cigarettes / Vaping Age Started Using Tobacco: 14; Age Quit Using Tobacco: 65; Cigarettes Per Day: daily 1 pod 2 days; Second Hand Exposure: No; Do You Dip or Chew Tobacco: No; Hx Alcohol Use: No Hx Substance Use: No Preferred Language: [place] Islander Communication Ability: Effective Visual Impairment: No Limitations Hearing Ability: Normal Basketball Scout Required: No Beliefs That Will Affect Care: None marital status: Single Current Living Situation: Alone Current Living Situation Comment: sister and brother are available to help current occupational status: retired current occupation: retired from career with [employer] with [employer] Feels Safe at Home: Yes Safety Concerns: Feels Safe At This Time Childhood Exposure to Second-Hand Smoke: Yes Diet: regular caffeine: Yes (one mug of coffee daily) Dental Care, Regularly: Yes Physical Activity Frequency: Does not Exercise Seatbelt Use: always Sunscreen Use: No (doesn't go outside when it is mary ) Assistive Devices: Walker Assistive Devices Comment: Sometimes uses walker Review of Systems Review of Systems: The patient denies chest pain, palpitations, cough, lower extremity swelling, sore throat, fevers, chills, sweats, constipation, blood in urine or stool, dysuria, urinary frequency or urgency, lightheadedness, memory loss, loss of consciousness, rash, abnormal bruising or bleeding, imbalance, focal weakness, numbness or tingling in arms or legs, generalized arthralgias or myalgias, back or neck pain, or night sweats. The review of systems is otherwise negative other than for that already noted above, and at least 10 systems have been reviewed. Physical Exam Physical Exam: The patient is awake, alert and oriented 3, well developed and well nourished, normocephalic and atraumatic, lying in bed and in no acute distress. HEENT--PERRL, EOMI, mucous membranes and oropharynx mildly dry. Neck--supple. No JVD. No bruits. Thyroid normal, trachea midline, no steven nopathy. Heart--normal S1 and S2. No murmurs, rubs or gallops. Lungs--clear bilaterally, no respiratory distress, no accessory muscle use. Abdomen--normal bowel sounds and soft. Generalized mild tenderness. Nondistended Extremities--no cyanosis or clubbing. No edema. Dermatologic--normal skin turgor, normal color, no abnormal lymph nodes, no rash. Neurologic--cranial nerves II through XII grossly intact. Rheumatologic--normal range of motion. Psychiatric--normal affect. Results & Data Results & Data Vital Signs (Past 12 Hours) Vital Signs Temp Pulse Pulse Resp BP BP Pulse Ox 09/19/23 20:02 81 20 138/71 09/19/23 19:12 37.3 C 78 18 128/70 99 09/19/23 17:59 36.9 C 19 100/60 95 09/19/23 17:30 73 09/19/23 17:21 75 20 95 09/19/23 16:31 36.9 C 89 19 87/63 L 95 O2 Del Method 09/19/23 20:02 09/19/23 19:12 Room Air 09/19/23 17:59 Room Air 09/19/23 17:30 09/19/23 17:21 Room Air 09/19/23 16:31 Room Air Laboratory Results Laboratory Results WBC 4.85 K/ul (4.8-10.8) 09/20/23 03:33 RBC 3.06 M/uL (4.70-6.10) L 09/20/23 03:33 Hgb 9.8 g/dl (14.0-18.0) L 09/20/23 03:33 Hct 30.9 % (42.0-52.0) L 09/20/23 03:33 MCV 101.0 fL (80.0-100.0) H 09/20/23 03:33 MCH 32.0 pg (25.0-34.0) 09/20/23 03:33 MCHC 31.7 g/dL (32.0-36.0) L 09/20/23 03:33 RDW Std Deviation 49.9 fL (36.4-46.3) H 09/20/23 03:33 RDW Coeff of Sandra 13.5 % (11.5-14.5) 09/20/23 03:33 Plt Count 234 K/uL (130-400) 09/20/23 03:33 MPV 9.0 fL (9.4-12.4) L 09/20/23 03:33 Immature Gran % (Auto) 0.4 % 09/20/23 03:33 Neut % (Auto) 93.0 % 09/20/23 03:33 Lymph % (Auto) 4.5 % 09/20/23 03:33 [place] % (Auto) 1.9 % 09/20/23 03:33 Eos % (Auto) 0.0 % 09/20/23 03:33 Baso % (Auto) 0.2 % 09/20/23 03:33 Neut # (Auto) 4.51 K/uL (1.40-6.50) 09/20/23 03:33 Lymph # (Auto) 0.22 K/uL (1.20-3.40) L 09/20/23 03:33 [place] # (Auto) 0.09 K/uL (0.11-0.59) L 09/20/23 03:33 Eos # (Auto) 0.00 K/uL (0.00-0.50) 09/20/23 03:33 Baso # (Auto) 0.01 K/uL (0.00-0.20) 09/20/23 03:33 Immature Gran # (Auto) 0.02 K/uL (0.01-0.20) 09/20/23 03:33 ESR 48 mm/hr (0-20) H 09/19/23 17:15 PT 10.9 Seconds (9.0-12.0) 09/19/23 17:15 INR 1.0 (0.9-1.1) 09/19/23 17:15 APTT 28 Seconds (21-31) 09/19/23 17:15 PTT Ratio 1.0 09/19/23 17:15 Sodium 138 mmol/L (136-145) 09/20/23 03:33 Potassium 4.8 mmol/L (3.5-5.1) 09/20/23 03:33 Chloride 111 mmol/L (98-107) H 09/20/23 03:33 Carbon Dioxide 22 mmol/L (21-32) 09/20/23 03:33 Anion Gap 5 (3-11) 09/20/23 03:33 BUN 20 mg/dl (6-23) 09/20/23 03:33 Creatinine 1.72 mg/dl (0.6-1.4) H D 09/20/23 03:33 Est Cr Clr Drug Dosing 37.5 ml/min 09/20/23 03:33 Est GFR ( Amer) 45.7 ml/min 09/20/23 03:33 Est GFR (Non-Af Amer) 39.4 ml/min 09/20/23 03:33 BUN/Creatinine Ratio 11.6 (10-20) 09/20/23 03:33 Glucose 144 mg/dl (70-99(Fasting)) H 09/20/23 03:33 Calcium 8.8 mg/dl (8.6-10.3) 09/20/23 03:33 Phosphorus 2.6 mg/dl (2.5-4.9) 09/20/23 03:33 Magnesium 1.9 mg/dl (1.7-2.4) 09/20/23 03:33 Total Bilirubin 0.5 mg/dl (0.2-1.0) 09/19/23 17:15 AST 15 U/L (13-39) 09/19/23 17:15 ALT 17 U/L (7-52) 09/19/23 17:15 Alkaline Phosphatase 112 U/L (34-104) H 09/19/23 17:15 Troponin I High Sens 4.0 pg/ml (0-20) 09/19/23 17:15 C-Reactive Protein < 0.50 mg/dl (0-0.5) 09/19/23 17:15 Total Protein 6.9 gm/dl (6.0-8.3) 09/19/23 17:15 Albumin 3.2 gm/dl (3.4-5.0) L 09/20/23 03:33 Globulin 2.9 gm/dl (2.5-4.0) 09/19/23 17:15 Albumin/Globulin Ratio 1.4 (0.9-2) 09/19/23 17:15 Lipase 25 U/L (11-82) 09/19/23 17:15 Urine Color Dark Yellow 09/19/23 Unknown Urine Appearance Clear (Clear) 09/19/23 Unknown Urine pH 5.0 (4.5-7.5) 09/19/23 Unknown Ur Specific [place] 1.014 (1.000-1.030) 09/19/23 Unknown Urine Protein Trace (Negative) H 09/19/23 Unknown Urine Glucose (UA) Negative (Negative) 09/19/23 Unknown Urine Ketones Trace (Negative) H 09/19/23 Unknown Urine Blood Negative (Negative) 09/19/23 Unknown Urine Nitrite Negative (Negative) 09/19/23 Unknown Urine Bilirubin Negative (Negative) 09/19/23 Unknown Urine Urobilinogen Negative (Negative) 09/19/23 Unknown Ur Leukocyte Esterase Negative (Negative) 09/19/23 Unknown Urine WBC (Auto) 1-5 /hpf (0-5) 09/19/23 Unknown Urine RBC (Auto) 0-4 /hpf (0-4) 09/19/23 Unknown U Hyaline Cast (Auto) 5-10 /lpf (0-5) H 09/19/23 Unknown U Epithel Cells (Auto) 5-10 /lpf (0-5) H 09/19/23 Unknown Urine Bacteria (Auto) Negative (Negative) 09/19/23 Unknown Stl C. cayetanensis PCR Not Detected (NotDetected) 09/19/23 19:07 Stool Rotavirus A PCR Not Detected (NotDetected) 09/19/23 19:07 Stl Adenov F 40/41 PCR Not Detected (NotDetected) 09/19/23 19:07 Stool Astrovirus (PCR) Not Detected (NotDetected) 09/19/23 19:07 Stool Campylobacter PCR Not Detected (NotDetected) 09/19/23 19:07 Stl C. diff Tox B Gene Negative Cdiff Gene (Neg) 09/19/23 19:07 Stool Cryptosporidium PCR Not Detected (NotDetected) 09/19/23 19:07 Stl E.coli Shiga Tox PCR Not Detected (NotDetected) 09/19/23 19:07 Stl Enterotoxigenic E PCR Not Detected (NotDetected) 09/19/23 19:07 Stool EPEC (PCR) Not Detected (NotDetected) 09/19/23 19:07 Stool EAEC (PCR) Not Detected (NotDetected) 09/19/23 19:07 Stl E. histolytica PCR Not Detected (NotDetected) 09/19/23 19:07 Stool Giardia Lamblia PCR Not Detected (NotDetected) 09/19/23 19:07 Stool Salmonella PCR Not Detected (NotDetected) 09/19/23 19:07 Stool Sapovirus (PCR) Not Detected (NotDetected) 09/19/23 19:07 Stl P. shigelloides PCR Not Detected (NotDetected) 09/19/23 19:07 Stl Shigella/EIEC PCR Not Detected (NotDetected) 09/19/23 19:07 St Y.enterocolitica PCR Not Detected (NotDetected) 09/19/23 19:07 Stool Vibrio (PCR) Not Detected (NotDetected) 09/19/23 19:07 Stl Vibrio cholerae PCR Not Detected (NotDetected) 09/19/23 19:07 Stl Norovirus GI/GII PCR Not Detected (NotDetected) 09/19/23 19:07 Adenovirus (PCR) Not Detected (NotDetected) 09/19/23 17:27 B. pertussis DNA (PCR) Not Detected (NotDetected) 09/19/23 17:27 B.parapertussis DNA PCR Not Detected (NotDetected) 09/19/23 17:27 C. pneumoniae DNA (PCR) Not Detected (NotDetected) 09/19/23 17:27 Coronavirus OC43 (PCR) Not Detected (NotDetected) 09/19/23 17:27 Coronavirus HKU1 (PCR) Not Detected (NotDetected) 09/19/23 17:27 Coronavirus 229E (PCR) Not Detected (NotDetected) 09/19/23 17:27 SARS-CoV-2 (PCR) Not Detected (NotDetected) 09/19/23 17:27 Coronavirus NL63 (PCR) Not Detected (NotDetected) 09/19/23 17:27 Human Metapneumovir PCR Not Detected (NotDetected) 09/19/23 17:27 Influenza Type A (PCR) Not Detected (NotDetected) 09/19/23 17:27 Influenza Type B (PCR) Not Detected (NotDetected) 09/19/23 17:27 M. pneumoniae (PCR) Not Detected (NotDetected) 09/19/23 17:27 Parainfluenza 1 (PCR) Not Detected (NotDetected) 09/19/23 17:27 Parainfluenza 2 (PCR) Not Detected (NotDetected) 09/19/23 17:27 Parainfluenza 3 (PCR) Not Detected (NotDetected) 09/19/23 17:27 Parainfluenza 4 (PCR) Not Detected (NotDetected) 09/19/23 17:27 RSV (PCR) Not Detected (NotDetected) 09/19/23 17:27 Entero/Rhino (PCR) Not Detected (NotDetected) 09/19/23 17:27 Blood Type O Positive 09/19/23 17:44 Antibody Screen NEGATIVE 09/19/23 17:44 Impressions Chest X-Ray 09/19/23 16:33 XR chest 1V portable HISTORY: 68 years-old Male Hypotension COMPARISON: 09/14/2023 TECHNIQUE: AP view of the chest FINDINGS: Cardiomediastinal and hilar silhouettes are within normal limits. Calcified plaque of the carotid arteries. Atherosclerosis of the aorta. Spondylotic s purring of the spine. No pneumothorax, pleural effusion or airspace consolidation. IMPRESSION: No acute process. ACT 112: Negative or not required by law. The above report was generated using voice recognition software. It may contain grammatical, syntax or spelling errors. Electronically signed by: Dom Baez M.D. 09/19/2023 5:10 PM Abdomen/Pelvis CT 09/19/23 16:34 Exam(s): CT ABDOMEN + PELVIS With Contrast IV Amt: 88 ml optiray 320 EXAM: CT Abdomen and Pelvis With Intravenous Contrast CLINICAL HISTORY: Reason for exam: RLQ pain, rectal bleeding, hypotension. TECHNIQUE: Axial computed tomography images of the abdomen and pelvis with intravenous contrast. CTDI is 21.91 mGy and DLP is 982.73 mGy-cm. Automated exposure control was utilized for the study. A dose lowering technique was utilized adhering to the principles of ALARA. CONTRAST: Patient received 88 ml optiray 320 of IV contrast COMPARISON: CT abdomen/pelvis on 02/27/2020 FINDINGS: Lung bases: Unremarkable. No mass. No consolidation. ABDOMEN: Liver: Unremarkable. No mass. Gallbladder and bile ducts: Unremarkable. No calcified stones. No ductal dilation. Pancreas: Unremarkable. No mass. No ductal dilation. Spleen: Unremarkable. No splenomegaly. Adrenals: Unremarkable. No mass. Kidneys and ureters: Nonspecific bilateral perinephric fat stranding. No hydronephrosis or obstructing stone. Probable small left renal cysts, but further evaluation could be performed with ultrasound if clinically indicated. Stomach and bowel: Prominence of the partida of the sigmoid colon and rectum may be secondary to underdistention. Colitis or proctitis is not excluded. Fluid and gas-filled small bowel loops could represent enteritis in the appropriate clinical setting. Evaluation of the stomach is limited by underdistention. PELVIS: Appendix: Normal appendix. Bladder: Mild prominence of the bladder wall is nonspecific. Please correlate with urinalysis if concerned for cystitis. Resolution of the previously seen left bladder wall mass. Reproductive: Mild calcification in the prostate. ABDOMEN and PELVIS: Intraperitoneal space: Unremarkable. No free air. No significant fluid collection. Bones/joints: Bilateral L5 pars defects. Grade 1 anterolisthesis of L5 on S1. Degenerative changes of the spine. No acute fracture. No dislocation. Soft tissues: Small fat-containing umbilical hernia. Vasculature: Atherosclerotic changes of the vasculature. Ectasia of the abdominal aorta. No aortic dissection. Occlusion of the left common iliac artery. Moderate stenosis of the right common iliac artery. Phleboliths in the pelvis. Lymph nodes: Unremarkable. No enlarged lymph nodes. IMPRESSION: 1. Prominence of the partida of the sigmoid colon and rectum may be secondary to underdistention. Colitis or proctitis is not excluded. 2. Fluid and gas-filled small bowel loops could represent enteritis in the appropriate clinical setting. 3. Mild prominence of the bladder wall is nonspecific. Please correlate with urinalysis if concerned for cystitis. Electronically signed by: Madelin Gomez M.D. 09/19/23 20:[address] 09/19/23 21:38 Exam(s): CT HEAD Without Contrast EXAM: CT Head Without Intravenous Contrast CLINICAL HISTORY: Reason for exam: memory impairment. TECHNIQUE: Axial computed tomography images of the head/brain without intravenous contrast. CTDI is 35.72 mGy and DLP is 547.75 mGy-cm. Automated exposure control was utilized for the study. A dose lowering technique was utilized adhering to the principles of ALARA. COMPARISON: CT head on 09/14/2023 FINDINGS: Brain: No acute infarct or hemorrhage identified. No extra-axial fluid collection. No mass effect or midline shift. Scattered areas of hypoattenuation in the supratentorial white matter likely represent chronic small vessel ischemic changes. Ventricles and sulci: Prominence of the ventricles and sulci is likely secondary to cerebral volume loss. Bones: Normal. No bony lesion or acute fracture. Subcutaneous tissues: Normal. Sinuses: Normal. No air-fluid levels or mucosal thickening. Mastoid air cells: Normal. Orbits: Grossly unremarkable. Other: Atherosclerotic calcifications in the intracranial vasculature. IMPRESSION: 1. No acute intracranial abnormality. 2. Mild chronic small vessel ischemic changes and cerebral volume loss. Electronically signed by: Madelin Gomez M.D. 09/19/23 22:18 PM Code Status & VTE Plan Code Status Full code PG Care Time/CCT Total # of Minutes Spent Total Time Spent with Patient: Total time spent is greater than 50% in coordination of care (as documented) at patient's floor/unit and/or counseling patient: Coding Level of Care Code 85244 INT INP/OBS CARE 3/75MIN Diagnoses Ulcerative colitis K51.90 Ulcerative rectosigmoiditis with rectal bleeding K51.319 Digestive disease complication type: unspecified complication Hypotension I95.9 Hypotension type: unspecified hypotension type Dehydration E86.0 Acute kidney injury superimposed on CKD N17.9; N18.9 CKD (chronic kidney disease) stage 3, GFR 30-59 ml/min N18.30 Transitional cell carcinoma C68.9 Smokes 1 pack of cigarettes per day F17.210 CAD (coronary artery disease) I25.10 PAD (peripheral artery disease) I73.9 Carotid artery stenosis I65.29 (2) Ulcerative proctosigmoiditis Digestive disease complication type: unspecified complication Qualified Co de(s): K51.319 - Ulcerative (chronic) rectosigmoiditis with unspecified complications (3) Hypotension Hypotension type: unspecified hypotension type Qualified Code(s): I95.9 - Hypotension, unspecified
[2023-09-20] MEDS ORDERED: NITROGLYCERIN SL 0.4 MG/TAB TAB SL PRN (01:34)
[2023-09-20] MEDS ORDERED: ACETAMINOPHEN 1000 MG/100 ML IV IV PRN (01:34)
[2023-09-20] MEDS: SODIUM CHLORIDE 0.9% 1,000 ML IV SCH ×3 (02:25→16:08)
[2023-09-20] MEDS ORDERED: PIPERACILLIN/TAZOBACTAM 4.5 GM in DEXTROSE 5% MINI-B 100 ML IV ONE (02:30)
[2023-09-20] MEDS ORDERED: ACETAMINOPHEN 1,000 MG/100 ML VIAL IV PRN (03:55)
[2023-09-20 04:04] LABS: Hematocrit (blood only) 30.9 % (42.0-52.0); Hemoglobin 9.8 g/dl (14.0-18.0); Mean Corpuscular Hgb Conc 31.7 g/dL (32.0-36.0); Platelet Count 234 K/uL (130-400); RDW Coefficient of Variation 13.5 % (11.5-14.5); RDW Standard Deviation 49.9 fL (36.4-46.3); Red Blood Count 3.06 M/uL (4.70-6.10); White Blood Count 4.85 K/ul (4.8-10.8)
[2023-09-20 04:21] LABS: Albumin Level 3.2 gm/dl (3.4-5.0); Calcium 8.8 mg/dl (8.6-10.3); Magnesium 1.9 mg/dl (1.7-2.4); Potassium 4.8 mmol/L (3.5-5.1)
[2023-09-20 04:27] LABS: BUN Creatinine Ratio 11.6 (10-20); Creatinine Clr Calc Pharmacy 37.5 ml/min; Est GFR (African American) 45.7 ml/min; Est GFR (Non-African American) 39.4 ml/min; Phosphorus 2.6 mg/dl (2.5-4.9)
[2023-09-20 04:28] LABS: Basophils # (auto) 0.01 K/uL (0.00-0.20); Basophils % (auto) 0.2 %; Immature Granulocytes # (auto) 0.02 K/uL (0.01-0.20); Immature Granulocytes % (auto) 0.4 %; Lymphocytes # (auto) 0.22 K/uL (1.20-3.40); Lymphocytes % (auto) 4.5 %; Monocytes # (auto) 0.09 K/uL (0.11-0.59); Monocytes % (auto) 1.9 %; Neutrophils # (auto) 4.51 K/uL (1.40-6.50)
[2023-09-20] MEDS: METOPROLOL SUCC 50MG EXT REL TAB PO SCH (07:39)
[2023-09-20] MEDS: methylPREDNISolone 40 MG in SYRINGE 0 ML IV SCH ×3 (07:51→23:35)
[2023-09-20] MEDS: PIPERACILLIN/TAZOBACTAM 4.5 GM in DEXTROSE 5% MINI-B 100 ML IV SCH ×3 (07:51→23:35)
[2023-09-20] MEDS: TAMSULOSIN HCL 0.4 MG CAP PO SCH (07:52)
[2023-09-20] MEDS: MULTIVITAMIN TAB PO SCH (07:52)
[2023-09-20] MEDS: NICOTINE 21 MG/24 HR TDSY TD SCH (07:52)
[2023-09-20] MEDS: PANTOprazole 40 MG in SYRINGE 0 ML IV SCH (07:52)
[2023-09-20] MEDS: allopurinoL 100 MG TAB PO SCH (07:53)
--- NOTE | 2023-09-20 10:53 | Gastrointestinal Consultation ---
Date of Consultation September 20, 2023 Assessment & Plan (1) Ulcerative colitis: Plan Patient with a flare of his UC in the setting of him being off of his entyvio since 07/2022. He is feeling better since getting IV steroids. Discussed case with Dr Mas who helped advise on plan. - I spoke with Sonal Root CMA in our office who is going to work on getting his entyvio set up again as patient is agreeable with restarting this. will plan on checking antibody levels prior to restarting. - He is feeling significantly better since getting a dose of IV steroids. - upon discharge, would recommend a tapering dose of prednisone starting at 40mg once daily with a 5 mg a week taper until finished. - He will need to follow up as outpatient in the next few weeks. He tells me he usually sees Dr. Marshall or Darcie DAVID and would like to follow with either. I scheduled an appointment for 10/04/23 at 1:40pm. Supervising Physician Co-Signing Physician Notes I saw the patient and agree with the findings as documented by DODIE Guzman History of Present Illness Reason for Consultation: UC flare, ? resume entyvio Requesting Physician: Neeraj Arthur DO Attending Physician: Shakir Cavanaugh MD History of Present Illness 68 year old gentleman with a past medical history of CKD, history of ulcerative colitis (off entyvio since 07/2022), everyday vaping, CAD who presented to the emergency department for ongoing lightheadedness over the past week with persistent, loose and watery stools since the mid of July 2023 consistent with what he feels is a flare of UC. Patient was seen by his primary care doctor and referred to emergency department due to his dizziness and low blood pressure. He felt he was getting dehydrated from his diarrhea. He admits to having 10-12 bowel movements a day. can see blood off and on in his stools. also admits to lower abdominal pain which he tells me has been ongoing. He tells me he feels he needs to restart his entyvio. Upon evaluation he had a CT of the abd/pelvis was performed and demonstrates evidence of colitis/proctocolitis consistent with patient's UC history. Stool studies were unremarkable for infection. calprotectin is pending. Since arrival he was given a 60 mg dose of Solu-Medrol and he tells me he is feeling significantly better since receiving this. rest of GI ros unremarkable. Allergies Allergy/AdvReac Type Severity Reaction Status Date / Time atorvastatin AdvReac Intermediate LEG Verified 09/19/23 18:30 FATIGUE, BACK PAIN Home Medications Medication Instructions Recorded Confirmed Type nitroglycerin 0.4 mg sublingual 0.4 mg sublingual Q5M PRN chest 06/25/19 09/19/23 History tablet pain #25 tabs aspirin 325 mg tablet 325 mg PO HS 02/04/22 09/19/23 History allopurinol 100 mg tablet 100 mg PO DAILY 05/06/22 09/19/23 History multivitamin (Daily Multi-Vitamin 1 tab PO DAILY 05/06/22 09/19/23 History tablet) lisinopril 40 mg tablet 40 mg PO HS #90 tabs 11/09/22 09/19/23 Rx rosuvastatin 40 mg tablet 40 mg PO HS #90 tabs 11/09/22 09/19/23 Rx metoprolol succinate 50 mg 50 mg PO DAILY #90 tabs 03/10/23 09/19/23 Rx tablet,extended release 24 hr tamsulosin 0.4 mg capsule 0.4 mg PO DAILY #90 caps 04/17/23 09/19/23 Rx ezetimibe 10 mg tablet (Zetia) 10 mg PO DAILY #90 tabs 07/07/23 09/19/23 Rx prednisone 20 mg tablet 40 mg (2 x 20 mg) PO DAILY 7 days 09/19/23 09/19/23 Rx #14 tabs Patient History Medical History (Updated 09/20/23 @ 05:13 by Nilo Curtis MD) Hypotension Dyspnea on exertion Bloody diarrhea Diarrhea Hematochezia Dysuria Gout Ulcerative colitis Carotid artery stenosis PAD (peripheral artery disease) COPD (chronic obstructive pulmonary disease) Esophageal cancer 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 08/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 BPH (benign prostatic hyperplasia) Osteoarthritis Hyperlipidemia Personal history of malignant neoplasm of bladder Hypertension Past myocardial infarction 2010 with stent x 2 CAD (coronary artery disease) stent x2 (2010) Surgical History History of colonoscopy History of laryngoscopy WITH BIOPSY History of cystoscopy BLADDER TUMOR REMOVED x2 History of biopsy of bladder History of tooth extraction History of tonsillectomy History of cardiac cath stent x2 (2010) -- [facility] follow with kari flores Stented coronary artery Family History Father Bladder cancer Denies family history of Ovarian cancer Prostate cancer Myocardial infarction Breast cancer Colorectal cancer Social History Smoking Status: Current every day smoker Tobacco Type: E-cigarettes / Vaping Age Started Using Tobacco: 14; Age Quit Using Tobacco: 65; Cigarettes Per Day: daily 1 pod 2 days; Second Hand Exposure: No; Do You Dip or Chew Tobacco: No; Hx Alcohol Use: No Hx Substance Use: No Preferred Language: Yemeni Communication Ability: Effective Visual Impairment: No Limitations Hearing Ability: Normal [employer] As[employer]er Required: No Beliefs That Will Affect Care: None marital status: Single Current Living Situation: Alone Current Living Situation Comment: sister and brother are available to help current occupational status: retired current occupation: retired from career with [employer] with [employer] Feels Safe at Home: Yes Childhood Exposure to Second-Hand Smoke: Yes Diet: regular caffeine: Yes (one mug of coffee daily) Dental Care, Regularly: Yes Physical Activity Frequency: Does not Exercise Seatbelt Use: always Sunscreen Use: No (doesn't go outside when it is mary ) Assistive Devices: Walker Review of Systems Review of Systems: All systems reviewed & are unremarkable except as noted in HPI & below Physical Exam Constitutional: WD/WN, vitals as above Respiratory: normal respiratory effort, lungs clear to auscultation Cardiovascular: RRR, no murmur, no edema Gastrointestinal (Abdomen): normal bowel sounds, soft, nontender, no hepatosplenomegaly Skin: no rashes, warm and dry Psychiatric: Orientation: alert and oriented x 3 Affect: euthymic affect Results & Data Vital Signs (Past 12 Hours) Vital Signs Temp Pulse Pulse Resp BP BP Pulse Ox 09/20/23 07:40 80 20 98/57 L 95 09/20/23 07:22 76 09/20/23 03:40 98.1 F 80 18 127/86 98 09/20/23 02:56 09/20/23 02:20 96 09/20/23 02:10 95 09/20/23 02:00 119/73 09/20/23 02:00 95 09/20/23 01:50 97 09/20/23 01:40 97 09/20/23 01:34 78 20 117/68 92 09/20/23 01:30 18 106/67 97 09/20/23 01:30 106/67 09/20/23 01:30 97 09/20/23 01:20 98 09/20/23 01:15 98 09/20/23 01:00 98.1 F 18 106/64 91 09/20/23 01:00 106/64 09/20/23 01:00 91 09/20/23 00:50 95 09/20/23 00:40 95 09/20/23 00:30 18 103/68 95 09/20/23 00:30 103/68 09/20/23 00:30 95 09/20/23 00:20 94 09/20/23 00:10 94 09/20/23 00:00 73 18 100/64 95 09/20/23 00:00 100/64 09/20/23 00:00 94 09/19/23 23:50 96 09/19/23 23:40 94 09/19/23 23:33 18 103/56 L 92 Pulse Ox O2 Del Method O2 Del Method O2 Flow Rate 09/20/23 07:40 Room Air 09/20/23 07:22 09/20/23 03:40 Room Air 09/20/23 02:56 99 Room Air 09/20/23 02:20 09/20/23 02:10 09/20/23 02:00 09/20/23 02:00 09/20/23 01:50 09/20/23 01:40 09/20/23 01:34 Room Air 0 09/20/23 01:30 09/20/23 01:30 09/20/23 01:30 09/20/23 01:20 09/20/23 01:15 09/20/23 01:00 09/20/23 01:00 09/20/23 01:00 09/20/23 00:50 09/20/23 00:40 09/20/23 00:30 09/20/23 00:30 09/20/23 00:30 09/20/23 00:20 09/20/23 00:10 09/20/23 00:00 09/20/23 00:00 09/20/23 00:00 09/19/23 23:50 09/19/23 23:40 09/19/23 23:33 PG Care Time/CCT Total # of Minutes Spent Total Time Spent with Patient: Total time spent is greater than 50% in coordination of care (as documented) at patient's floor/unit and/or counseling patient: Coding Level of Care Code 84397 INT INP/OBS CARE 2/55MIN Diagnoses Ulcerative colitis K51.90
--- NOTE | 2023-09-20 11:18 | Electrocardiogram Report ---
Test Reason : Blood Pressure : / mmHG Vent. Rate : 075 BPM Atrial Rate : 075 BPM P-R Int : 114 ms QRS Dur : 076 ms QT Int : 368 ms P-R-T Axes : 024 029 057 degrees QTc Int : 410 ms Normal sinus rhythm Low voltage QRS Cannot rule out Anterior infarct , age undetermined Abnormal ECG When compared with ECG of 14-SEP-2023 07:59, No significant change was found Confirmed by Shakir Cohen ([id number]) on 09/20/2023 11:17:40 AM Referred By: Ben Hensley Confirmed By:Lexa Cohen
--- NOTE | 2023-09-20 14:03 | Hospitalist Progress Note ---
Date of Service September 20, 2023 Assessment & Plan (1) Ulcerative colitis: (2) Ulcerative proctosigmoiditis: (3) Hypotension: (4) Dehydration: (5) CKD (chronic kidney disease) stage 3, GFR 30-59 ml/min: (6) Acute kidney injury superimposed on CKD: (7) Transitional cell carcinoma: (8) CAD (coronary artery disease): (9) PAD (peripheral artery disease): (10) Carotid artery stenosis: Plan # Ulcerative colitis/ulcerative proctosigmoiditis Stopped Entyvio in July 2022 against GI advice (Dr. Marshall) Significant increase in symptoms since July 2023 CT scan of abdomen pelvis cannot rule out colitis or proctitis, and is consistent with enteritis as well Methylprednisolone 40 mg IV every 8 hours Zosyn 4.5 g IV every 8 hours Pantoprazole 40 mg IV daily Acetaminophen 1 g IV every 8 hours as needed for mild pain or fever Full liquid diet as tolerated GI Consulted: - prednisone taper at discharge 40mg, decrease by 5mg/wk until off - f/u outpatient GI 10/04/23 @ 1:40 # Acute kidney injury superimposed on CKD stage III Creatinine 2.04, with normal range 1.2-1.5 IV fluids as noted above Recheck laboratories in a.m. 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 Arthur. In agreement with the documented findings as noted in the resident documentation with any exceptions or additions as noted here. Ongoing urgent BM without symptoms c/w chronic symptoms without lightheadedness etc. On examination, S1/S2 nl RRR no MCG. CTAB. Abd NT/ND BS+ve UC - GI consult - continue methylprednisolone therapy, abx and PPI. LOUIS on CKDIII - holding antiHTN, monitor BP. Restart ARB only when needed and D/C ACEI CAD/PAD s/p coronary stent - restart statin therapy and Zetia. Holding ASA Else see resident documentation as noted. Subjective No acute events overnight. Hb interval drop by 2. NAD. VSS. Had one BM this am, non bloody. Denies LEIGH, CP, SOB, N/V/D, LE swelling. Review of Systems Review of Systems: reviewed, per HPI Physical Exam Physical Exam: General: patient resting comfortably, NAD, non-toxic in appearance, answers questions appropriately and follows commands. Skin: warm, dry, intact HEENT: NC/AT, anicteric sclera, conjunctiva without injection, moist mucus membranes Heart: +S1/S2, regular, no m/r/g Lungs: equal air entry bilaterally, no rales/rhonchi/wheezes Abd: +BS, soft, NT/ND Ext: warm, no clubbing/cyanosis or edema Neuro: nonfocal, speech intact, no facial droop, moving all extremities on command. Results & Data Results & Data Vital Signs (Past 12 Hours) Vital Signs Temp Pulse Pulse Resp BP Pulse Ox Pulse Ox 09/20/23 12:22 90 18 130/72 96 09/20/23 11:23 09/20/23 07:40 80 20 98/57 L 95 09/20/23 07:22 76 09/20/23 03:40 36.7 C 80 18 127/86 98 09/20/23 02:56 99 09/20/23 02:20 96 09/20/23 02:10 95 O2 Del Method O2 Del Method 09/20/23 12:22 Room Air 09/20/23 11:23 Room Air 09/20/23 07:40 Room Air 09/20/23 07:22 09/20/23 03:40 Room Air 09/20/23 02:56 Room Air 09/20/23 02:20 09/20/23 02:10 (2) Ulcerative proctosigmoiditis Digestive disease complication type: unspecified complication Qualified Code(s): K51.319 - Ulcerative (chronic) rectosigmoiditis with unspecified complications (3) Hypotension Hypotension type: unspecified hypotension type Qualified Code(s): I95.9 - Hypotension, unspecified
[2023-09-20 16:14] LABS: Hematocrit (blood only) 28.6 % (42.0-52.0); Hemoglobin 9.7 g/dl (14.0-18.0)
[2023-09-20] MEDS: ROSUVASTATIN CALCIUM 20 MG TAB PO SCH (21:07)
[2023-09-20] MEDS: MELATONIN 3 MG TAB PO PRN (23:47)
[2023-09-21] MEDS ORDERED: hydrOXYzine HCl 25 MG TAB PO ONE (01:07)
[2023-09-21 04:57] LABS: Hematocrit (blood only) 28.5 % (42.0-52.0); Hemoglobin 9.2 g/dl (14.0-18.0); Mean Corpuscular Hemoglobin 32.4 pg (25.0-34.0); Mean Corpuscular Hgb Conc 32.3 g/dL (32.0-36.0); Mean Corpuscular Volume 100.4 fL (80.0-100.0); Mean Platelet Volume 9.3 fL (9.4-12.4); Platelet Count 237 K/uL (130-400); RDW Coefficient of Variation 13.7 % (11.5-14.5); RDW Standard Deviation 49.8 fL (36.4-46.3); Red Blood Count 2.84 M/uL (4.70-6.10); White Blood Count 11.83 K/ul (4.8-10.8)
[2023-09-21 05:06] LABS: Albumin Level 3.2 gm/dl (3.4-5.0); BUN Creatinine Ratio 9.4 (10-20); Calcium 8.9 mg/dl (8.6-10.3); Creatinine Clr Calc Pharmacy 40.5 ml/min; Est GFR (African American) 50.2 ml/min; Est GFR (Non-African American) 43.3 ml/min; Magnesium 2.1 mg/dl (1.7-2.4); Phosphorus 2.4 mg/dl (2.5-4.9); Potassium 3.9 mmol/L (3.5-5.1)
[2023-09-21 05:45] LABS: Troponin I High Sensitivity 12.4 pg/ml (0-20)
[2023-09-21] MEDS: methylPREDNISolone 40 MG in SYRINGE 0 ML IV SCH ×3 (06:18→23:05)
--- NOTE | 2023-09-21 07:26 | Hospitalist Progress Note ---
Date of Service September 21, 2023 Assessment & Plan (1) Ulcerative colitis: (2) Ulcerative proctosigmoiditis: (3) Hypotension: (4) Dehydration: (5) CKD (chronic kidney disease) stage 3, GFR 30-59 ml/min: (6) Acute kidney injury superimposed on CKD: (7) Transitional cell carcinoma: (8) CAD (coronary artery disease): (9) PAD (peripheral artery disease): (10) Carotid artery stenosis: Plan # Ulcerative colitis/ulcerative proctosigmoiditis Stopped Entyvio in July 2022 against GI advice (Dr. Marshall) Significant increase in symptoms since July 2023 CT scan of abdomen pelvis cannot rule out colitis or proctitis, and is consistent with enteritis as well Methylprednisolone 40 mg IV every 8 hours Zosyn 4.5 g IV every 8 hours Pantoprazole 40 mg IV daily Acetaminophen 1 g IV every 8 hours as needed for mild pain or fever Full liquid diet as tolerated GI Consulted: - prednisone taper at discharge 40mg, decrease by 5mg/wk until off - f/u outpatient GI 10/04/23 @ 1:40 # Anemia Macrocytic Dropping but rate declining transfuse below 8 # Acute kidney injury superimposed on CKD stage III Creatinine 2.04, with normal range 1.2-1.5 IV fluids as noted above Hold losartan/lisinopril # CAD/PAD/stented coronary artery/carotid artery stenosis Rosuvastatin 40mg qHS and Zetia 10mg daily Hold aspirin for now #Nicotine Dependence Nicotine patch # Cancer diagnoses Transitional cell carcinoma, 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 Arthur. In agreement with the documented findings as noted in the resident documentation with any exceptions or additions as noted here. Resolution of urgent BM since presentation without any hematochezia/melena. Episode of 'hot lungs' overnight with troponin for trending with EKG as noted. On examination, S1/S2 nl RRR no MCG. CTAB. Abd NT/ND BS+ve UC - GI consult - continue methylprednisolone therapy for transition to taper per GI note, abx and PPI. Anemia, macrocytic - still decreasing but with slower rate. recheck CBC in PM and transfuse at 8. LOUIS on CKDIII - holding antiHTN, monitor BP. Restart ARB only when needed and D/C ACEI CAD/PAD s/p coronary stent with 'hot lungs' overnight- repeat troponin. Continue statin therapy and Zetia. Holding ASA Else see resident documentation as noted. Subjective Had an episode overnight where his "lungs felt warm." EKGx2 normal. High sensitivity trop drawn was 12.4, repeat pending. Cr improving. Phos 2.4. Hb interval drop by 2. Developing elevated WBC count. NAD. VSS. Had one BM this am, non bloody. Denies LEIGH, CP, SOB, N/V/D, abdominal pain, LE swelling. Review of Systems Review of Systems: reviewed, per HPI Physical Exam Physical Exam: General: patient resting comfortably, NAD, non-toxic in appearance, answers questions appropriately and follows commands. Skin: warm, dry, intact HEENT: NC/AT, anicteric sclera, conjunctiva without injection, moist mucus membranes Heart: +S1/S2, regular, no m/r/g Lungs: equal air entry bilaterally, no rales/rhonchi/wheezes Abd: +BS, soft, NT/ND Ext: warm, no clubbing/cyanosis or edema Neuro: nonfocal, speech intact, no facial droop, moving all extremities on command. Results & Data Results & Data Vital Signs (Past 12 Hours) Vital Signs Temp Pulse Pulse Resp BP Pulse Ox O2 Del Method 09/21/23 04:20 36.6 C 84 18 104/55 L 94 Room Air 09/20/23 22:04 90 09/20/23 21:41 Room Air 09/20/23 21:25 103 H 09/20/23 21:14 36.6 C 97 H 18 142/78 H 96 Room Air (2) Ulcerative proctosigmoiditis Digestive disease complication type: unspecified complication Qualified Code(s): K51.319 - Ulcerative (chronic) rectosigmoiditis with unspecified complications (3) Hypotension Hypotension type: unspecified hypotension type Qualified Code(s): I95.9 - Hypotension, unspecified
[2023-09-21] MEDS: PIPERACILLIN/TAZOBACTAM 4.5 GM in DEXTROSE 5% MINI-B 100 ML IV SCH ×3 (07:52→23:05)
[2023-09-21] MEDS: MULTIVITAMIN TAB PO SCH (08:04)
[2023-09-21] MEDS: allopurinoL 100 MG TAB PO SCH (08:04)
[2023-09-21] MEDS: TAMSULOSIN HCL 0.4 MG CAP PO SCH (08:04)
[2023-09-21] MEDS: METOPROLOL SUCC 50MG EXT REL TAB PO SCH (08:04)
[2023-09-21] MEDS: EZETIMIBE 10 MG TAB PO SCH (08:04)
[2023-09-21] MEDS: NICOTINE 21 MG/24 HR TDSY TD SCH (08:04)
[2023-09-21] MEDS: POT PHOSPHATE MONOBASIC W/ SOD TAB PO SCH ×4 (09:13→20:18)
[2023-09-21 10:25] LABS: Folate (Folic Acid),Ser orPlas > 22.30 ng/ml (>5.38)
[2023-09-21 10:26] LABS: Vitamin B12 339 pg/ml (180-914)
[2023-09-21] MEDS: PANTOprazole 40 MG in SYRINGE 0 ML IV SCH (11:10)
[2023-09-21 14:40] LABS: Hematocrit (blood only) 30.6 % (42.0-52.0); Mean Corpuscular Hemoglobin 32.6 pg (25.0-34.0); Mean Corpuscular Hgb Conc 32.7 g/dL (32.0-36.0); Mean Corpuscular Volume 99.7 fL (80.0-100.0); Mean Platelet Volume 8.9 fL (9.4-12.4); Platelet Count 248 K/uL (130-400); RDW Coefficient of Variation 14.1 % (11.5-14.5); RDW Standard Deviation 50.9 fL (36.4-46.3); Red Blood Count 3.07 M/uL (4.70-6.10); White Blood Count 16.06 K/ul (4.8-10.8)
[2023-09-21 15:41] LABS: Basophils # (auto) 0.01 K/uL (0.00-0.20); Basophils % (auto) 0.1 %; Immature Granulocytes # (auto) 0.13 K/uL (0.01-0.20); Immature Granulocytes % (auto) 0.8 %; Lymphocytes # (auto) 0.37 K/uL (1.20-3.40); Lymphocytes % (auto) 2.3 %; Monocytes # (auto) 0.96 K/uL (0.11-0.59); Neutrophils # (auto) 14.59 K/uL (1.40-6.50); Neutrophils % (auto) 90.8 %
--- NOTE | 2023-09-21 19:56 | Electrocardiogram Report ---
Test Reason : Blood Pressure : / mmHG Vent. Rate : 081 BPM Atrial Rate : 081 BPM P-R Int : 150 ms QRS Dur : 080 ms QT Int : 404 ms P-R-T Axes : 063 037 053 degrees QTc Int : 469 ms Normal sinus rhythm When compared with ECG of 19-SEP-2023 17:21, QT has lengthened Confirmed by Shakir Cohen ([id number]) on 09/21/2023 7:56:42 PM Referred By: Ben Hensley Confirmed By:Lexa Cohen
--- NOTE | 2023-09-21 19:56 | Electrocardiogram Report ---
Test Reason : Blood Pressure : / mmHG Vent. Rate : 077 BPM Atrial Rate : 077 BPM P-R Int : 152 ms QRS Dur : 080 ms QT Int : 416 ms P-R-T Axes : 062 038 049 degrees QTc Int : 470 ms Normal sinus rhythm When compared with ECG of 21-SEP-2023 04:25, (unconfirmed) No significant change was found Confirmed by Shakir Cohen ([id number] on 09/21/2023 7:56:21 PM Referred By: Ben Hensley Confirmed By:Lexa Cohen
[2023-09-21] MEDS: ROSUVASTATIN CALCIUM 20 MG TAB PO SCH (20:19)
[2023-09-21] MEDS: hydrOXYzine HCl 25 MG TAB PO PRN (23:05)
[2023-09-21] MEDS: MELATONIN 3 MG TAB PO PRN (23:05)
[2023-09-22] MEDS: methylPREDNISolone 40 MG in SYRINGE 0 ML IV SCH ×3 (06:13→22:24)
[2023-09-22] MEDS: EZETIMIBE 10 MG TAB PO SCH (07:23)
[2023-09-22] MEDS: POT PHOSPHATE MONOBASIC W/ SOD TAB PO SCH ×4 (07:23→20:35)
[2023-09-22] MEDS: TAMSULOSIN HCL 0.4 MG CAP PO SCH (07:24)
[2023-09-22] MEDS: allopurinoL 100 MG TAB PO SCH (07:24)
[2023-09-22] MEDS: METOPROLOL SUCC 50MG EXT REL TAB PO SCH (07:24)
[2023-09-22] MEDS: MULTIVITAMIN TAB PO SCH (07:24)
[2023-09-22] MEDS: PIPERACILLIN/TAZOBACTAM 4.5 GM in DEXTROSE 5% MINI-B 100 ML IV SCH (07:25)
[2023-09-22] MEDS: NICOTINE 21 MG/24 HR TDSY TD SCH (07:25)
[2023-09-22 08:02] LABS: Albumin Level 3.1 gm/dl (3.4-5.0); BUN Creatinine Ratio 10.9 (10-20); Calcium 8.7 mg/dl (8.6-10.3); Creatinine Clr Calc Pharmacy 41.3 ml/min; Est GFR (African American) 51.4 ml/min; Est GFR (Non-African American) 44.3 ml/min; Magnesium 2.1 mg/dl (1.7-2.4); Phosphorus 4.1 mg/dl (2.5-4.9)
[2023-09-22 09:28] LABS: Hematocrit (blood only) 30.6 % (42.0-52.0); Hemoglobin 9.9 g/dl (14.0-18.0); Mean Corpuscular Hemoglobin 32.8 pg (25.0-34.0); Mean Corpuscular Hgb Conc 32.4 g/dL (32.0-36.0); Mean Corpuscular Volume 101.3 fL (80.0-100.0); Platelet Count 232 K/uL (130-400); RDW Coefficient of Variation 14.3 % (11.5-14.5); RDW Standard Deviation 52.9 fL (36.4-46.3); Red Blood Count 3.02 M/uL (4.70-6.10); White Blood Count 14.14 K/ul (4.8-10.8)
[2023-09-22] MEDS: NICOTINE POLACRILEX 2 MG GUM MT PRN ×2 (09:51→14:00)
[2023-09-22] MEDS: PANTOprazole 40 MG in SYRINGE 0 ML IV SCH (09:52)
[2023-09-22 09:57] LABS: Basophils # (auto) 0.01 K/uL (0.00-0.20); Basophils % (auto) 0.1 %; Immature Granulocytes # (auto) 0.13 K/uL (0.01-0.20); Immature Granulocytes % (auto) 0.9 %; Lymphocytes # (auto) 0.42 K/uL (1.20-3.40); Monocytes # (auto) 0.47 K/uL (0.11-0.59); Monocytes % (auto) 3.3 %; Neutrophils # (auto) 13.11 K/uL (1.40-6.50); Neutrophils % (auto) 92.7 %
--- NOTE | 2023-09-22 13:52 | Hospitalist Progress Note ---
Date of Service September 22, 2023 Assessment & Plan (1) Ulcerative colitis: (2) Ulcerative proctosigmoiditis: (3) Hypotension: (4) Dehydration: (5) CKD (chronic kidney disease) stage 3, GFR 30-59 ml/min: (6) Acute kidney injury superimposed on CKD: (7) Transitional cell carcinoma: (8) CAD (coronary artery disease): (9) PAD (peripheral artery disease): (10) Carotid artery stenosis: Plan # Ulcerative colitis/ulcerative proctosigmoiditis Stopped Entyvio in July 2022 against GI advice (Dr. Marshall) Significant increase in symptoms since July 2023 CT scan of abdomen pelvis cannot rule out colitis or proctitis, and is consistent with enteritis as well Methylprednisolone 40 mg IV every 8 hours dc zosyn, abdominal infection unlikely Pantoprazole 40 mg IV daily Acetaminophen 1 g IV every 8 hours as needed for mild pain or fever Full liquid diet as tolerated GI Consulted: - prednisone taper at discharge 40mg, decrease by 5mg/wk until off - f/u outpatient GI 10/04/23 @ 1:40 # Anemia Macrocytic Dropping but rate declining transfuse below 8 # Acute kidney injury superimposed on CKD stage III Creatinine 1.56, with normal range 1.2-1.5 IV fluids as noted above Hold losartan/lisinopril # CAD/PAD/stented coronary artery/carotid artery stenosis Rosuvastatin 40mg qHS and Zetia 10mg daily Hold aspirin for now #Nicotine Dependence Nicotine patch # Cancer diagnoses Transitional cell carcinoma, 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 I agree with the impression and plan in the resident documentation, and as summarized below. Patient semireclined in bed this afternoon. Unfortunately has had increased bowel movements (loose). He did expand his final bit yesterday; had some potato chips a friend brought in. Denies significant abdominal pain; better than admission. EXAM Hemodynamically stable. Afebrile. Alert and oriented. No distress appreciated. Talkative. Abdomen is soft; minimal tenderness with rather firm palpation. No rebound or guarding. DATA Labs White blood cell count 14.14, hemoglobin 9.9 Sodium 141, potassium 4.0, BUN 17, creatinine 1.56 IMPRESSION & PLAN Ulcerative colitis Appreciate GI consultation Continue methylprednisolone Discontinue antibiotics Monitor clinically Anemia, stable Monitor CBC LOUIS on CKD stage III, creatinine improving Trend BMP Lisinopril on hold Else see resident documentation as noted. Subjective No acute events overnight. Patient seen and evaluated at bedside this morning. Cr improving. Phos 2.4. Hb stable. Leukocytosis likely due to steroid therapy. NAD. VSS. Diarrhea x6 this AM. Denies LEIGH, CP, SOB, N/V/D, abdominal pain, LE swelling. Review of Systems Review of Systems: reviewed, per HPI Physical Exam Physical Exam: General: patient resting comfortably, NAD, non-toxic in appearance, answers questions appropriately and follows commands. Skin: warm, dry, intact HEENT: NC/AT, anicteric sclera, conjunctiva without injection, moist mucus membranes Heart: +S1/S2, regular, no m/r/g Lungs: equal air entry bilaterally, no rales/rhonchi/wheezes Abd: +BS, soft, NT/ND Ext: warm, no clubbing/cyanosis or edema Neuro: nonfocal, speech intact, no facial droop, moving all extremities on command. Results & Data Results & Data Vital Signs (Past 12 Hours) Vital Signs Temp Pulse Pulse Resp BP BP Pulse Ox 09/22/23 12:02 36.4 C L 63 17 111/68 96 09/22/23 07:30 09/22/23 07:22 71 09/22/23 07:21 36.6 C 58 L 16 121/59 L 93 09/22/23 07:00 59 L 09/22/23 03:58 36.3 C L 58 L 18 116/54 L 94 O2 Del Method 09/22/23 12:02 Room Air 09/22/23 07:30 Room Air 09/22/23 07:22 09/22/23 07:21 Room Air 09/22/23 07:00 09/22/23 03:58 Room Air (2) Ulcerative proctosigmoiditis Digestive disease complication type: unspecified complication Qualified Code(s): K51.319 - Ulcerative (chronic) rectosigmoiditis with unspecified complications (3) Hypotension Hypotension type: unspecified hypotension type Qualified Code(s): I95.9 - Hypotension, unspecified
[2023-09-22] MEDS: ROSUVASTATIN CALCIUM 20 MG TAB PO SCH (20:35)
[2023-09-22] MEDS: hydrOXYzine HCl 25 MG TAB PO PRN (22:24)
[2023-09-22] MEDS: MELATONIN 3 MG TAB PO PRN (22:24)
[2023-09-23 05:37] LABS: Basophils # (auto) 0.01 K/uL (0.00-0.20); Basophils % (auto) 0.1 %; Hemoglobin 9.3 g/dl (14.0-18.0); Immature Granulocytes # (auto) 0.11 K/uL (0.01-0.20); Lymphocytes % (auto) 4.7 %; Mean Corpuscular Hemoglobin 32.7 pg (25.0-34.0); Mean Corpuscular Hgb Conc 33.2 g/dL (32.0-36.0); Mean Corpuscular Volume 98.6 fL (80.0-100.0); Mean Platelet Volume 9.3 fL (9.4-12.4); Monocytes # (auto) 0.55 K/uL (0.11-0.59); Monocytes % (auto) 5.2 %; Neutrophils # (auto) 9.46 K/uL (1.40-6.50); Platelet Count 220 K/uL (130-400); RDW Coefficient of Variation 14.1 % (11.5-14.5); Red Blood Count 2.84 M/uL (4.70-6.10); White Blood Count 10.63 K/ul (4.8-10.8)
[2023-09-23 05:56] LABS: BUN Creatinine Ratio 10.7 (10-20); Calcium 8.4 mg/dl (8.6-10.3); Creatinine Clr Calc Pharmacy 43.3 ml/min; Est GFR (African American) 54.3 ml/min; Est GFR (Non-African American) 46.9 ml/min; Magnesium 2.1 mg/dl (1.7-2.4); Potassium 3.9 mmol/L (3.5-5.1)
[2023-09-23] MEDS: methylPREDNISolone 40 MG in SYRINGE 0 ML IV SCH (06:23)
[2023-09-23 08:02] VITALS: RESP 16; TEMP 97.5; O2SAT 91
[2023-09-23] MEDS: POT PHOSPHATE MONOBASIC W/ SOD TAB PO SCH ×2 (08:23→13:49)
[2023-09-23] MEDS: TAMSULOSIN HCL 0.4 MG CAP PO SCH (08:23)
[2023-09-23] MEDS: METOPROLOL SUCC 50MG EXT REL TAB PO SCH (08:23)
[2023-09-23] MEDS: MULTIVITAMIN TAB PO SCH (08:23)
[2023-09-23] MEDS: NICOTINE 21 MG/24 HR TDSY TD SCH (08:23)
[2023-09-23] MEDS: EZETIMIBE 10 MG TAB PO SCH (08:24)
[2023-09-23] MEDS: allopurinoL 100 MG TAB PO SCH (08:24)
[2023-09-23] MEDS: PANTOprazole 40 MG in SYRINGE 0 ML IV SCH (10:48)
--- NOTE | 2023-09-23 12:55 | Discharge Summary ---
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 The patient reports that he was concerned about potential side effects of Entyvio, and stopped it against the recommendations of his sensor operator Dr. Marshall in early July. Shortly after that time, he developed persistent loose and watery stools, and has had decreased oral intake for liquids and solids due to abdominal discomfort when trying to adjust them. Over the past week he has had progressive issues with fatigue, generalized weakness, and lightheadedness. He realizes at this time, that his decision to stop Entyvo was a bad decision, and has resulted in many of his symptoms at this time. He does report having an abnormal weight loss, but cannot specify how much he has lost, but attributes this to decreased intake due to abdominal discomfort since July Admission Exam Per Admitting Provider The patient is awake, alert and oriented 3, well developed and well nourished, normocephalic and atraumatic, lying in bed and in no acute distress. HEENT--PERRL, EOMI, mucous membranes and oropharynx mildly dry. Neck--supple. No JVD. No bruits. Thyroid normal, trachea midline, no adenopathy. Heart--normal S1 and S2. No murmurs, rubs or gallops. Lungs--clear bilaterally, no respiratory distress, no accessory muscle use. Abdomen--normal bowel sounds and soft. Generalized mild tenderness. Nondistended Extremities--no cyanosis or clubbing. No edema. Dermatologic--normal skin turgor, normal color, no abnormal lymph nodes, no rash. Neurologic--cranial nerves II through XII grossly intact. Rheumatologic--normal range of motion. Psychiatric--normal affect. Principal Diagnosis Ulcerative colitis Discharge Exam General: patient resting comfortably, NAD, non-toxic in appearance, answers questions appropriately and follows commands. Skin: warm, dry, intact HEENT: NC/AT, anicteric sclera, conjunctiva without injection, moist mucus membranes Heart: +S1/S2, regular, no m/r/g Lungs: equal air entry bilaterally, no rales/rhonchi/wheezes Abd: +BS, soft, ND, mildly tender in b/l lower quadrants Ext: warm, no clubbing/cyanosis or edema Neuro: nonfocal, speech intact, no facial droop, moving all extremities on command. Discharge Data Allergies Allergy/AdvReac Type Severity Reaction Status Date / Time atorvastatin AdvReac Intermediate LEG Verified 09/19/23 18:30 FATIGUE, BACK PAIN Consultations 09/19/23 20:51 ED Decision to Admit Stat 09/20/23 07:56 Consult Gastroenterology Routine Ordered Studies 09/19/23 16:34 CT abd pelvis IV con only Stat 09/19/23 21:38 CT head/brain wo con Stat Hospital Course (1) Ulcerative colitis: (2) Ulcerative proctosigmoiditis: (3) Hypotension: (4) Dehydration: (5) CKD (chronic kidney disease) stage 3, GFR 30-59 ml/min: (6) Acute kidney injury superimposed on CKD: (7) Transitional cell carcinoma: (8) CAD (coronary artery disease): (9) PAD (peripheral artery disease): (10) Carotid artery stenosis: Plan # Ulcerative colitis/ulcerative proctosigmoiditis Stopped Entyvio in July 2022 against GI advice (Dr. Marshall) Significant increase in symptoms since July 2023 CT scan of abdomen pelvis cannot rule out colitis or proctitis, and is consistent with enteritis as well Methylprednisolone 40 mg IV every 8 hours dc zosyn, abdominal infection unlikely Pantoprazole 40 mg IV daily Acetaminophen 1 g IV every 8 hours as needed for mild pain or fever Full liquid diet as tolerated GI Consulted: - prednisone taper at discharge 40mg, decrease by 5mg/wk until off - f/u outpatient GI 10/04/23 @ 1:40 # Anemia Macrocytic Stable at 9-10 x3 days transfuse below 8 # Acute kidney injury superimposed on CKD stage III, resolving Creatinine 1.49 at discharge, with normal range 1.2-1.5 IV fluids as noted above Hold losartan/lisinopril, restart at dc # CAD/PAD/stented coronary artery/carotid artery stenosis Rosuvastatin 40mg qHS and Zetia 10mg daily Hold aspirin for now #Nicotine Dependence Nicotine patch # Cancer diagnoses Transitional cell carcinoma, 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 s/p chemo for both Total Time Total Time Spent Total Time Spent (In Minutes): See attending attestation Discharge Plan Discharge Items Patient Disposition: Home - Self-Care Reason For Visit: LOUIS, HYPOTENSION, UC FLARE Discharge Diagnosis: UC Flare Activity: Resume your previous activity Non-emergency contact: Primary Care Provider and Grain Wafer Machine Operator Call non-emergency contact if: you have any medication questions, your symptoms worsen and you have a fever Follow-up/Referrals: Ben Hensley, [Primary Care Provider] - 10/02/23 1:00 pm Diet: Regular Addtl Attending Provider Instructions: You were admitted to the hospital for a flare of your ulcerative colitis. You were treated with IV steroids. We also ruled out an infection in your abdomen. While you were here you were seen by the sensor operator and they were able to make some recommendations for your treatment when you leave the hospital. You will continue to take steroids until you see them in the office. See below for more information. A discharge summary will be sent to your primary care physician to ensure continuity of care. Please bring this discharge summary with you to your next office appointment so that your provider can review it at that time. Follow-up appointments: Make a follow-up appointment with your PCP within the next week. It is very important that you follow up with them shortly after discharge from the hospital. You have an appointment with Malia PHAN on 10/04/2023 at 1:40pm. If you are unable to make this appointment, or have any other questions, their office can be reached at . Keep all your follow-up appointments as already scheduled. If you cannot make an appointment, notify your provider. Medications: Your medication list has been reviewed and reconciled upon discharge to ensure accuracy and continuity of care. An updated list of all your medications is included with your hospital discharge paperwork. Please review this list closely, and make note of any changes. We sent a new medication called med name to your pharmacy. Take prednisone (40mg) daily for 7 days. After 7 days you should decrease the dose by 5 mg to 35mg/day. Every 7 days you will decrease by another 5mg (30,25,20,etc.) until you finish one week taking 5mg daily. If you have any issues filling these prescriptions, please call [phone] and ask to leave a message for Dr. Adrian Arthur. Take your medications as instructed; do not skip a dose of your medicines. Make sure all of your doctors know every medicine you are taking (including [id number] medicines, vitamins, and supplements). Call your primary care provider before taking any new medicines (including dwtv-hwe-ahnccei medicines, vitamins, and supplements), because some of these may interact with your current medications, or may make your symptoms worse. Tell your primary care provider if you cannot afford your medications. CONTACT YOUR PRIMARY CARE PROVIDER if you experience any of the following: fever difficulty keeping food, fluids, or medications down increased frequency of diarrhea Difficulty following your treatment plan, or difficulty taking medications CALL 911 OR GO TO THE EMERGENCY DEPARTMENT if you experience any of the following: Sudden, severe abdominal pain or nausea/vomiting Severe chest pain, or chest pain that radiates (moves) to your jaw or arm Sudden, severe shortness of breath or difficulty breathing Thank you for allowing us to participate in your care. Pending Studies at Discharge: No Stand-Alone Forms: [facility], Smoking Cessation Medications and DC Order Prescriptions: New prednisone 5 mg tablet 40 mg PO DAILY Qty: 252 0RF Rx Instructions: Take 8 pills per day for 7 days, then 7 pills per day for 7 days. Every 7 days decrease, the amount you are taking by 1 pill (5mg) until you finish the last week of one pill per day. Continued multivitamin [Daily Multi-Vitamin] Tablet 1 tab PO DAILY allopurinol 100 mg tablet 100 mg PO DAILY lisinopril 40 mg tablet 40 mg PO HS Qty: 90 3RF rosuvastatin 40 mg tablet 40 mg PO HS Qty: 90 3RF ezetimibe [Zetia] 10 mg tablet 10 mg PO DAILY Qty: 90 3RF nitroglycerin 0.4 mg tablet, sublingual 0.4 mg SL Q5M PRN (Reason: chest pain) Qty: 25 Patient Comments: up to 3 doses prednisone 20 mg tablet 40 mg PO DAILY 7 Days Qty: 14 0RF Rx Instructions: PER PT "DID NOT START YET, NEED TO DENTURE CONTOUR WIRE SPECIALIST FROM PHARMACY". metoprolol succinate 50 mg tablet extended release 24 hr 50 mg PO DAILY Qty: 90 3RF tamsulosin 0.4 mg capsule 0.4 mg PO DAILY Qty: 90 3RF aspirin 325 mg Tablet 325 mg PO HS Discharge Orders: Discharge Order (Routine); Ordered 09/23/23 Ordered By: Adrian Arthur Admission Data Admit Date/Time: 09/20/23 00:10 Attending Provider: Alfredo Martinez Admit Provider: Nilo Curtis Primary Care Provider: Ben Hensley Other Providers: Nilo Curtis; Loco Torres Other Interventions: Discharge Summary Assessment (RN) Last Done: 09/23/23 13:01 Supervising Physician Co-Signing Physician Notes ATTESTATION I also saw the patient and confirmed dempsey portions of the history and exam. I agree with the impression and plan in the resident documentation, and as summarized below. He continues to improve and feel better. Still has some loose stools but he is able to control them now. Very minimal abdominal discomfort; mostly some cramping, lower abdominal area, predefecation. He would much rather be at home and continued to convalesce. He is taking p.o. without difficulty; he is learning to adjust his diet to limit loose stools. EXAM Hemodynamically stable. Afebrile. Alert and oriented. No distress appreciated. Talkative. Abdomen is soft; No rebound or guarding. DATA Labs White blood count 10.63, hemoglobin 9.3 Serum creatinine 1.49 IMPRESSION & PLAN Ulcerative colitis Appreciate GI consultation Prednisone taper Outpatient follow-up with gastroenterology Discussed signs and symptoms for which to return to the hospital or seek earlier outpatient care Anemia, stable Monitor CBC LOUIS on CKD stage III, creatinine improving Lisinopril held while inpatient Resume upon discharge Will need follow-up BMP in 1-2 weeks Additional per resident documentation
[2023-09-23 13:02] VITALS: BP 126/68; PULSE 83
== END 2023-09-23 14:30 | disposition home or self-care (01) | DRG 386 ==
LOC: ED 15:58 → SUATTDRO 09-20 00:10 → EDINP 09-20 00:10 → 2W 09-20 01:35